=== PATIENT | female | born 1950 | race Two or more races ===

== ENCOUNTER 2020-08-21 23:14 | Inpatient (IN) | payer OTHER ==
[~2020-08-21] VITALS: Ht 154.9 cm; Wt 79.5 kg
[~2020-08-21 23:14] MED LIST: GLIM4TAB42 PO; LOSA-69 PO; METF-372 PO; NEBI5TAB2 PO; ROSU40TA PO
[2020-08-22 00:10] LABS: Basophils # (auto) 0.1 10 ^3/uL (0-0.2); Basophils % (auto) 0.5 % (0.0-2.0); Eosinophils # (auto) 0.3 10 ^3/uL (0-0.8); Eosinophils % (auto) 2.6 % (0.0-7.0); Hematocrit 40.1 % (36.0-46.0); Hemoglobin 13.9 g/dL (12.2-16.2); Lymphocytes # (auto) 4.2 10 ^3/uL (0.4-5.4); Lymphocytes % (auto) 38.2 % (10.0-50.0); Mean Corpuscular Hemoglobin 29.4 pg (28.0-32.0); Mean Corpuscular Hgb Conc. 34.7 g/dL (32.0-36.0); Mean Corpuscular Volume 84.9 fL (80.0-100.0); Monocytes # (auto) 0.8 10 ^3/uL (0-1.3); Monocytes % (auto) 7.7 % (0.0-12.0); Neutrophils # (auto) 5.6 10 ^3/uL (1.6-8.6); Nucleated Red Blood Cells % 0.1 %; Red Blood Cells 4.73 10^6/uL (4.0-5.20); Red Cell Distribution Width 13.6 % (11.8-14.3); White Blood Cell 10.9 10^3/uL (4.4-10.8)
[2020-08-22 00:28] LABS: Albumin 3.8 g/dL (3.4-5.0); BUN/Creatinine Ratio 21.9; Calcium 9.5 mg/dL (8.5-10.1)
[2020-08-22 00:31] LABS: Bilirubin, Total 0.5 mg/dL (0.2-1.0); Total Protein 7.9 g/dL (6.4-8.2)
[2020-08-22 08:12] LABS: Urine Bacteria NONE SEEN /hpf (None Seen); Urine Blood Negative /uL (Negative); Urine Specific Gravity 1.022 (1.001-1.035); Urine WBC 23 /hpf (0 - 5)
[2020-08-22] MEDS ORDERED: SODIUM CHLORIDE 0.9% 1,000 ML IV ONE ×2 (09:00)
[2020-08-22] MEDS ORDERED: KETOROLAC TROMETH 30 MG/ML 1ML VIAL IV ONE (09:00)
[2020-08-22] MEDS ORDERED: cefTRIAXone 1GM/50ML D5W 50 ML IV ONE (09:00)
[2020-08-22] MEDS ORDERED: TAMSULOSIN HYDROCHLORIDE 0.4 MG CAP PO ONE (09:00)
[2020-08-22] MEDS ORDERED: MORPHINE SULFATE INJECTION 2 MG/ML SYRG IV PRN (09:45)
[2020-08-22] MEDS ORDERED: traMADol HCL 50 MG TAB PO PRN (09:45)
[2020-08-22] MEDS ORDERED: ONDANSETRON HCL 4 MG/2 ML VIAL IV PRN (09:45)
[2020-08-22] MEDS ORDERED: DEXTROSE (50%) 50ML SYRG IV PRN (09:45)
[2020-08-22] MEDS ORDERED: TEMAZEPAM 15 MG CAP PO PRN (09:45)
[2020-08-22] MEDS ORDERED: ACETAMINOPHEN 500 MG TAB PO PRN (09:45)
[2020-08-22] MEDS: SODIUM CHLORIDE 0.9% 1,000 ML IV SCH ×2 (10:33→19:45)
[2020-08-22] MEDS: FAMOTIDINE 20 MG TAB PO SCH (10:34)
[2020-08-22] MEDS: ENOXAPARIN SOD 40 MG/0.4 ML SYRINGE SC SCH (10:34)
[2020-08-22] MEDS: ACCU-CHEK COMFORT CURVE STRIP VI SCH ×3 (11:43→22:00)
[2020-08-22] MEDS: InsuLIN REG 1unit/0.01ml Soln (100units/ml) SC SCH ×3 (11:44→23:27)
[2020-08-22] MEDS ORDERED: LOSA-39 PO (14:46)
[2020-08-22] MEDS ORDERED: ATOR40TA52 PO (14:56)
[2020-08-22] MEDS ORDERED: FIN5T PO (14:56)
[2020-08-22] MEDS ORDERED: METO25TA93 PO (14:56)
[2020-08-22] MEDS ORDERED: ASPI-498 PO (14:57)
[2020-08-22] MEDS ORDERED: CHOL20007 PO (14:57)
[2020-08-22] MEDS ORDERED: BIOT5TAB3 PO (14:58)
[2020-08-22 17:00] VITALS: BP 146/76
[2020-08-22 22:00] VITALS: BP 161/78
[2020-08-23 05:00] VITALS: BP 147/88
[2020-08-23] MEDS: SODIUM CHLORIDE 0.9% 1,000 ML IV SCH (05:45)
[2020-08-23 06:11] LABS: Basophils # (auto) 0 10 ^3/uL (0-0.2); Basophils % (auto) 0.4 % (0.0-2.0); Eosinophils # (auto) 0.2 10 ^3/uL (0-0.8); Eosinophils % (auto) 2.6 % (0.0-7.0); Hematocrit 36.9 % (36.0-46.0); Hemoglobin 13.2 g/dL (12.2-16.2); Lymphocytes % (auto) 29.7 % (10.0-50.0); Mean Corpuscular Hemoglobin 29.6 pg (28.0-32.0); Mean Corpuscular Hgb Conc. 35.7 g/dL (32.0-36.0); Monocytes # (auto) 0.5 10 ^3/uL (0-1.3); Monocytes % (auto) 7.8 % (0.0-12.0); Neutrophils # (auto) 4.1 10 ^3/uL (1.6-8.6); Neutrophils % (auto) 59.5 % (37.0-80.0); Red Blood Cells 4.45 10^6/uL (4.0-5.20); Red Cell Distribution Width 13.6 % (11.8-14.3); White Blood Cell 6.8 10^3/uL (4.4-10.8)
[2020-08-23 06:28] LABS: Albumin 3.5 g/dL (3.4-5.0); BUN/Creatinine Ratio 21.3
[2020-08-23 06:31] LABS: Bilirubin, Total 0.7 mg/dL (0.2-1.0); Total Protein 7.9 g/dL (6.4-8.2)
[2020-08-23] MEDS: ACCU-CHEK COMFORT CURVE STRIP VI SCH ×2 (06:39→11:30)
[2020-08-23] MEDS: InsuLIN REG 1unit/0.01ml Soln (100units/ml) SC SCH ×2 (06:41→11:30)
[2020-08-23 09:00] VITALS: BP 136/67
[2020-08-23] MEDS ORDERED: cefTRIAXone 1GM/50ML D5W 50 ML IV SCH (09:00)
[2020-08-23] MEDS: FAMOTIDINE 20 MG TAB PO SCH (09:42)
[2020-08-23] MEDS: ENOXAPARIN SOD 40 MG/0.4 ML SYRINGE SC SCH (09:43)
== END 2020-08-23 14:45 | disposition home or self-care (01) | DRG 693 ==
LOC: ER 23:14 → OVERFLOW 08-22 09:41 → EAST 08-22 14:16
PROVIDERS: ADMIT Internal Medicine; ATTEND Internal Medicine
DX: N20.0 Calculus of kidney (principal); N17.0 Acute kidney failure with tubular necrosis; N12 Tubulo-interstitial nephritis, not specified as acute or chronic; Z20.822 Contact with and (suspected) exposure to COVID-19; E11.22 Type 2 diabetes mellitus with diabetic chronic kidney disease; E78.5 Hyperlipidemia, unspecified; I12.9 Hypertensive chronic kidney disease with stage 1 through stage 4 chronic kidney disease, or unspecified chronic kidney disease; K76.0 Fatty (change of) liver, not elsewhere classified; N18.9 Chronic kidney disease, unspecified; E11.65 Type 2 diabetes mellitus with hyperglycemia; K57.90 Diverticulosis of intestine, part unspecified, without perforation or abscess without bleeding; E66.9 Obesity, unspecified; E11.21 Type 2 diabetes mellitus with diabetic nephropathy; Z79.84 Long term (current) use of oral hypoglycemic drugs; Z83.3 Family history of diabetes mellitus; Z90.710 Acquired absence of both cervix and uterus; Z88.2 Allergy status to sulfonamides; Z68.20 Body mass index [BMI] 20.0-20.9, adult
CPT/HCPCS: 36415; 74176; 80053; 81001; 82962; 83036; 85025; 87086; 87426; 93005; 96361; 96365; 96375; G0378; J0696; J1815; J1885

== ENCOUNTER 2021-09-20 21:01 | Emergency (ER) | payer OTHER ==
[~2021-09-20 21:01] MED LIST changes: +ASPI-498 PO; +ATOR40TA52 PO; +BIOT5TAB3 PO; +CHOL20007 PO; +FIN5T PO; +LOSA-39 PO; -LOSA-69 PO; +METO25TA93 PO; -NEBI5TAB2 PO; -ROSU40TA PO
[2021-09-21] MEDS ORDERED: AMOX-277 PO (08:37)
[2021-09-21] MEDS ORDERED: PRED10TA PO (08:37)
[2021-09-21] MEDS ORDERED: cefTRIAXone SOD 1,000 MG VL IM ONE (08:45)
[2021-09-21] MEDS ORDERED: methylPREDNISolone SOD SUCC 125 MG/2 ML VL IM ONE (08:45)
[2021-09-21 08:49] VITALS: BP 160/83
== END 2021-09-21 09:15 | disposition home or self-care (01) ==
LOC: ER 21:01
DX: J06.9 Acute upper respiratory infection, unspecified (principal); Z20.822 Contact with and (suspected) exposure to COVID-19
CPT/HCPCS: 36415; 71046; 87426; 96372; 99284; J0696; J2930

== ENCOUNTER 2023-09-30 23:02 | Inpatient (IN) | payer OTHER, MEDICAID ==
[~2023-09-30] VITALS: Ht 154.9 cm; Wt 62.0 kg
[~2023-09-30 23:02] MED LIST changes: +AMOX875T4 PO; -LOSA-39 PO; +LOSA-535 PO; +PRED10TA PO
[2023-10-01] VITALS (9 sets, daily range): BP systolic 144–150; BP diastolic 56–82; PULSE 60–88; RESP 13–18; TEMP 97.7–98.2; O2SAT 97–98
[2023-10-01 01:46] LABS: Urine Bacteria FEW /hpf (None Seen); Urine Blood 1+ /uL (Negative); Urine Clarity Clear (Clear); Urine Color Light-Yellow (Yellow); Urine Protein, UAD TRACE (Negative); Urine Specific Gravity 1.025 (1.001-1.035); Urine Urobilinogen Normal (Negative); Urine WBC 4 /hpf (0 - 5)
[2023-10-01 02:35] LABS: Basophils # (auto) 0 10 ^3/uL (0-0.2); Basophils % (auto) 0.3 % (0.0-2.0); Eosinophils # (auto) 0.1 10 ^3/uL (0-0.8); Lymphocytes # (auto) 2.3 10 ^3/uL (0.4-5.4); Lymphocytes % (auto) 25.3 % (10.0-50.0); Mean Corpuscular Hgb Conc. 34.3 g/dL (32.0-36.0); Mean Corpuscular Volume 84.6 fL (80.0-100.0); Monocytes # (auto) 0.7 10 ^3/uL (0-1.3); Monocytes % (auto) 7.7 % (0.0-12.0); Neutrophils % (auto) 65.7 % (37.0-80.0); Nucleated Red Blood Cells % 0.1 %; Red Blood Cells 4.84 10^6/uL (4.0-5.20); Red Cell Distribution Width 14.1 % (11.8-14.3); White Blood Cell 9.1 10^3/uL (4.4-10.8)
[2023-10-01 02:45] LABS: Alkaline Phosphatase 94 U/L (46-116)
[2023-10-01 02:46] LABS: Alanine Aminotransferase 20 U/L (7-40); Albumin 4.6 g/dL (3.2-4.8); Anion Gap 13 (5-15); Aspartate Aminotransferase 19 U/L (13-40); BUN/Creatinine Ratio 22.1 (10.0-20.0); Bilirubin, Total 0.7 mg/dL (0.2-1.0); Blood Urea Nitrogen 27 mg/dL (9-23); Calcium 10.2 mg/dL (8.7-10.4); Carbon Dioxide 20 mmol/L (20-30); Chloride 104 mmol/L (98-107); Glucose 190 mg/dL (74-106); Potassium 4.4 mmol/L (3.5-5.1); Sodium 137 mmol/L (136-145); Total Protein 7.7 g/dL (5.7-8.2)
[2023-10-01] MEDS: ONDANSETRON HCL 4 MG/2 ML VIAL IV ONE (02:52)
[2023-10-01] MEDS: SODIUM CHLORIDE 0.9% 1,000 ML IV ONE ×2 (02:53→06:17)
[2023-10-01] MEDS: KETOROLAC TROMETH 30 MG/ML 1ML VIAL IV ONE (02:53)
[2023-10-01] MEDS ORDERED: DEXTROSE (50%) 50ML SYRG IV PRN (06:00)
[2023-10-01] MEDS: ACCU-CHEK COMFORT CURVE STRIP VI SCH (08:00)
[2023-10-01] MEDS: InsuLIN REG 1unit/0.01ml Soln (100units/ml) SC SCH (08:00)
[2023-10-01] MEDS: LOSARTAN POTASSIUM 50 MG TAB PO SCH (10:00)
[2023-10-01] MEDS: METOPROLOL SUCCINATE XL 50 MG TAB PO SCH (10:00)
[2023-10-01] MEDS ORDERED: FINASTERIDE 5 MG TAB PO SCH (10:00)
[2023-10-01] MEDS: CHOLECALCIFEROL (VITD3) 1,000UNIT=25mCg TAB PO SCH (10:00)
[2023-10-01] MEDS ORDERED: GLIP10TA9 PO (11:35)
[2023-10-01] MEDS ORDERED: AMLO1TAB21 PO (11:35)
[2023-10-01] MEDS ORDERED: METO-289 PO (11:35)
[2023-10-01] MEDS ORDERED: CETI-120 PO (11:47)
[2023-10-01] MEDS ORDERED: SITA50TA PO (11:47)
[2023-10-01] MEDS ORDERED: KETO2SHA5 TOP (11:47)
[2023-10-01] MEDS ORDERED: METH4TAB9 PO (11:47)
[2023-10-01] MEDS ORDERED: SITA100T7 PO (11:47)
[2023-10-01] MEDS ORDERED: LOPE-62 PO (11:47)
[2023-10-01] MEDS: HYDROcodone-ACET 5/325MG TAB PO PRN (20:35)
[2023-10-01] MEDS: ATORVASTATIN 20 MG TAB PO SCH (20:35)
[2023-10-02 01:00] VITALS: BP 139/66; PULSE 64; RESP 17; TEMP 98.1; O2SAT 100
[2023-10-02 05:00] VITALS: BP 131/55; PULSE 58; RESP 18; TEMP 98; O2SAT 98
[2023-10-02] MEDS: MORPHINE SULFATE INJ 2 MG/ml SYRG IV PRN (06:19)
[2023-10-02 08:00] VITALS: PULSE 59; RESP 18; O2SAT 99
[2023-10-02 08:33] VITALS: BP 145/58; PULSE 66; RESP 18; TEMP 97.4; O2SAT 99
[2023-10-02] MEDS: cefTRIAXone 1GM/50ML D5W 50 ML IV ONE (11:45)
[2023-10-02] MEDS ORDERED: CIPR-173 PO (11:52)
[2023-10-02 12:44] VITALS: BP 134/61; PULSE 61; RESP 18; TEMP 97.7; O2SAT 96
[2023-10-02 13:02] VITALS: BP 134/61; PULSE 61; RESP 18; TEMP 97.7; O2SAT 96
[2023-10-03] MEDS ORDERED: cefTRIAXone 1GM/50ML D5W 50 ML IV SCH (09:00)
== END 2023-10-02 15:00 | disposition home or self-care (01) | DRG 693 ==
LOC: ER 23:02 → OVERFLOW 10-01 09:02 → WEST WING 10-01 09:52
PROVIDERS: ADMIT Family Medicine; ATTEND Family Medicine
DX: N20.0 Calculus of kidney (principal); N17.0 Acute kidney failure with tubular necrosis; N39.0 Urinary tract infection, site not specified; I10 Essential (primary) hypertension; E11.65 Type 2 diabetes mellitus with hyperglycemia; E78.00 Pure hypercholesterolemia, unspecified; Z87.442 Personal history of urinary calculi; Z88.2 Allergy status to sulfonamides; Z79.899 Other long term (current) drug therapy; Z79.82 Long term (current) use of aspirin; Z79.84 Long term (current) use of oral hypoglycemic drugs; Z85.038 Personal history of other malignant neoplasm of large intestine; Z90.710 Acquired absence of both cervix and uterus
CPT/HCPCS: 36415; 74176; 80053; 81001; 82962; 85025; 96361; 96374; 96375; G0378; J1815; J1885; J2405

== ENCOUNTER 2024-06-08 12:03 | Inpatient (IN) | payer OTHER, MEDICAID ==
[~2024-06-08] VITALS: Ht 154.9 cm; Wt 66.5 kg
[~2024-06-08 12:03] MED LIST changes: +AMLO1TAB21 PO; -AMOX875T4 PO; -ASPI-498 PO; +CETI-120 PO; +CIPR-173 PO; -GLIM4TAB42 PO; +GLIP10TA9 PO; +KETO2SHA5 TOP; +LOPE-62 PO; +METH4TAB9 PO; +METO-289 PO; -METO25TA93 PO; +SITA100T7 PO
--- NOTE | 2024-06-08 12:43 | ED.PDOC ---
General HPI Comments 73 y/o F, with PMHX of urolithiasis, HTN, DM, and HLD presents to the ED for CC of right flank pain. Patient states, that she has been experiencing right flank pain that radiates to her RUQ x4days. Patient relays, associated symptoms of nausea. Patient comments on, having received x7 lithotripsies in the past. Patient denies vomiting, diarrhea, hematuria, dysuria, or back pain. No other symptoms or modifying factors at this time. Time Seen by MD: 12:30 Primary Care Provider: STAN Reviewed notes: Nurses Notes, Medications, Allergies Allergies: Coded Allergies: Sulfa Antibiotics (Verified Allergy, Mild, 10/09/13) Home Meds Active Scripts Ciprofloxacin Hcl (Cipro) 500 Mg Tab, 1 TAB PO BID, #14 TAB Prov:JAIDA ROSALES MD 10/02/23 Prednisone (Prednisone) 10 Mg Tab, 10 MG PO BID for 5 Days, #10 MG 0 Refills Prov:MAISHA KING 09/21/21 Reported Medications Loperamide HCl (Loperamide Hydrochloride) 2 Mg Cap, CAP PO 10/01/23 Cetirizine HCl (Cetirizine Hydrochloride) 10 Mg Tab, 1 TAB PO DAILY 10/01/23 Sitagliptin Phosphate (Januvia) 100 Mg Tab, 1 TAB PO DAILY 10/01/23 Ketoconazole (Ketoconazole) 2 % Sha, TOP 10/01/23 Methylprednisolone (Methylprednisolone) 4 Mg Tab, 1 TAB PO DAILY 10/01/23 Metoprolol Succinate (Metoprolol Succinate Er) 50 Mg Tab, 1 TAB PO DAILY 10/01/23 Amlodipine Besylate (Amlodipine Besylate) 2.5 Mg Tab, 1 TAB PO DAILY, #30 TAB 5 Refills 10/01/23 Glipizide (Glipizide) 10 Mg Tab, 1 TAB PO BID, #60 TAB 5 Refills 10/01/23 Biotin (Vitamin H) (BIOTIN) Unknown Strength Tab, PO DAILY 08/22/20 Cholecalciferol (VITAMIN D3) 2,000 Unit Tab, 1 TAB PO DAILY 08/22/20 Atorvastatin Calcium (ATORVASTATIN CALCIUM) 40 Mg Tab, 1 TAB PO HS 08/22/20 Finasteride (Finasteride) 5 Mg Tab, 0.5 TAB PO DAILY for ALOPECIA FOR ALOPECIA 08/22/20 Losartan Potassium (Losartan Potassium) 100 Mg Tab, 1 TAB PO DAILY 08/22/20 Metformin Hydrochloride (Metformin Hcl) 1,000 Mg Tab, 1000 MG PO BID PER PT, PT TAKES 1000 MG PO AT BREAKFAST, 1000 MG PO AT LUNCH, & 500 MG PO AT DINNER 10/10/13 Information Source: Patient Mode of Arrival: Ambulatory Severity: Moderate Timing: Days Duration: Since onset Prehospital treatment: None Onset: Spontaneous Symptoms: None History of: Kidney stone Location: (R) Flank Modifying factors: None associated signs and symptoms: Abdominal Pain, Nausea Past Medical History PAST MEDICAL HISTORY: DM, High Lipids, HTN, Kidney Stones Surgical History: Hysterectomy MEAL ROOM HAND History: No Pertinent MEAL ROOM HAND History Family History Family History: Reviewed,noncontributory to illness Social History Smoker: Non-Smoker Alcohol: Denies ETOH Use Drugs: Denies Drug Use Lives In: Home Constitutional: denies: chills, diaphoresis, fatigue, fever, malaise, sweats, weakness, others EENTM: denies: blurred vision, double vision, ear bleeding, ear discharge, ear drainage, ear pain, ear ringing, eye pain, eye redness, hearing loss, mouth pain, mouth swelling, nasal discharge, nose bleeding, nose congestion, nose pain, photophobia, tearing, throat pain, throat swelling, voice changes, others Respiratory: denies: cough, hemoptysis, orthopnea, SOB at rest, shortness of breath, SOB with excertion, stridor, wheezing, others Cardiovascular: denies: chest pain, dizzy spells, diaphoresis, Dyspnea on exertion, edema, irregular heart beat, left arm pain, lightheadedness, palpitations, PND, syncope, others Gastrointestinal: reports: nausea; denies: abdomen distended, abdominal pain, b lood streaked bowels, constipated, diarrhea, dysphagia, difficulty swallowing, hematemesis, melena, poor appetite, poor fluid intake, rectal bleeding, rectal pain, vomiting, others Genitourinary: reports: flank pain; denies: abnormal vagina bleeding, burning, dyspareunia, dysuria, frequency, hematuria, incontinence, pain, , vagina discharge, urgency, others Neurological: denies: dizziness, fainting, headache, left sided numbness, left sided weakness, numbness, paresthesia, pre-existing deficit, right sided numbness, right sided weakness, seizure, speech problems, tingling, tremors, weakness, others Musculoskeletal: denies: back pain, gout, joint pain, joint swelling, muscle pain, muscle stiffness, neck pain, others Integumetry: denies: bruises, change in color, change in hair/nails, dryness, laceration, lesions, lumps, rash, wounds, others Allergic/Immunocompromised: denies: Difficulty Healing, Frequent Infections, Hives, Itching, others Hematologic/Lymphatic: denies: anemia, blood clots, easy bleeding, easy bruising, swollen glands, others Endocrine: denies: excessive hunger, excessive sweating, excessive thirst, excessive urination, flushing, intolerance to cold, intolerance to heat, unexplained weight gain, unexplained weight loss, others Psychiatric: denies: anxiety, bipolar disorder, depression, hopeless, panic disorder, schizophrenia, sleepless, suicidal, others All Other Systems: Reviewed and Negative Physical Exam General Appearance: Moderate Distress HEENT: Normal ENT Inspection, Pharynx Normal, TMs Normal Neck: Full Range of Motion, Non-Tender, Normal, Normal Inspection Respiratory: Chest Non-Tender, Lungs Clear, No Accessory Muscle Use, No Respiratory Distress, Normal Breath Sounds Cardiovascular: No Edema, No JVD, No Murmur, No Gallop, Normal Peripheral Pulses, Regular Rate/Rhythm Breast Exam: Deferred Gastrointestinal: No Organomegaly, Non Tender, No Pulsatile Mass, Normal Bowel Sounds, Soft Genitalia: Deferred Pelvic: Deferred Rectal: Deferred Extremities: No calf tenderness, Normal capillary refill, Normal inspection, Normal range of motion, Non-tender, No pedal edema Musculoskeletal : Location: Right Extremity Location: Back Apperance: Tenderness: Moderate Neurologic: Alert, washroom attendant II-XII nml as Tested, No Motor Deficits, Normal Affect, Normal Mood, No Sensory Deficits Cerebellar Function: Normal Reflexes: Normal Skin: Dry, Normal Color, Warm Lymphatic: No Adenopathy Was a procedure done? Was a procedure done?: No Differential Diagnosis Kidney stone (Female): Cholelithiasis Urinary Problem (Female): Pyelonephritis, Urinary retention, Urolithiasis, UTI, Vaginitis X-Ray, Labs, Meds, VS Vital Signs Date Time Temp Pulse Resp B/P (MAP) Pulse Ox O2 Delivery O2 Flow Rate FiO2 4/3/25 19:00 67 18 96 Room Air 06/08/24 18:11 98.2 67 18 122/67 (85) 96 98.2 06/08/24 15:01 98.1 59 16 118/56 (76) 97 98.1 06/08/24 15:00 60 18 135/68 06/08/24 13:34 67 18 145/71 06/08/24 13:12 67 18 96 Room Air* 0 21 06/08/24 13:12 97.7 67 18 145/71 (95) 96 97.7 06/08/24 12:20 97.8 76 18 134/72 (92) 97 97.8 Lab Test 06/08/24 13:07 Range/Units White Blood Count 11.4 H 4.4-10.8 10^3/uL Red Blood Count 4.63 4.0-5.20 10^6/uL Hemoglobin 13.2 12.2-16.2 g/dL Hematocrit 39.8 36.0-46.0 % Mean Corpuscular Volume 86.0 80.0-100.0 fL Mean Corpuscular Hemoglobin 28.5 28.0-32.0 pg Mean Corpuscular Hemoglobin Concent 33.2 32.0-36.0 g/dL Red Cell Distribution Width 14.4 H 11.8-14.3 % Platelet Count 284 140-450 10^3/uL Mean Platelet Volume 8.3 6.9-10.8 fL Neutrophils (%) (Auto) 67.4 37.0-80.0 % Lymphocytes (%) (Auto) 23.2 10.0-50.0 % Monocytes (%) (Auto) 8.0 0.0-12.0 % Eosinophils (%) (Auto) 1.0 0.0-7.0 % Basophils (%) (Auto) 0.4 0.0-2.0 % Neutrophils # (Auto) 7.7 1.6-8.6 10 ^3/uL Lymphocytes # (Auto) 2.6 0.4-5.4 10 ^3/uL Monocytes # (Auto) 0.9 0-1.3 10 ^3/uL Eosinophils # (Auto) 0.1 0-0.8 10 ^3/uL Basophils # (Auto) 0 0-0.2 10 ^3/uL Nucleated Red Blood Cells 0.1 % Sodium Level 137 136-145 mmol/L Potassium Level 4.7 3.5-5.1 mmol/L Chloride Level 103 98-107 mmol/L Carbon Dioxide Level 24 20-31 mmol/L Anion Gap 10 5-15 Blood Urea Nitrogen 21 9-23 mg/dL Creatinine 1.08 H 0.550-1.02 mg/dL Glomerular Filtration Rate Calc 54 >90 mL/min BUN/Creatinine Ratio 19.4 10.0-20.0 Serum Glucose 152 H 74-106 mg/dL Calcium Level 10.9 H 8.7-10.4 mg/dL Current Medications Medications (Trade) Dose Ordered Sig/Adis Route Start Time Stop Time Status Last Admin Ondansetron HCl (Zofran) 4 mg ONCE ONCE IV 06/08/24 12:45 06/08/24 12:46 DC 06/08/24 13:33 Sodium Chloride 1,000 ml @ 1,000 mls/hr Q1H ONCE IVB 06/08/24 12:45 06/08/24 13:44 DC 06/08/24 13:29 Morphine Sulfate 4 mg ONCE ONCE IV 06/08/24 12:45 06/08/24 12:46 DC 06/08/24 13:34 Ketorolac Tromethamine (Toradol Injection) 15 mg ONCE ONCE IV 06/08/24 12:45 06/08/24 12:46 DC 06/08/24 13:35 CT ABD PEL: IMPRESSION: No evidence of acute abdominopelvic abnormalities. Multiple nonobstructing bilateral renal calculi ; slightly more when compared from prior imaging. No hydronephrosis. Mild wall thickening of proximal small bowel loops which may be due to naren dequate distention with mild enteritis not completely excluded. Moderate amount of fecal material within the colon. IV Hep-Lock was established The patient was given a 1 L bolus of normal saline The patient was given ketorolac 15 mg IV push The patient was given morphine 4 mg IV push for the pain The patient was given Zofran 4 mg IV push for the nausea The CBC shows an elevated white blood cell count of 11.4 The rest of the CBC is within normal limits The chemistry panel is within normal limits At this time, the patient was being admitted to the hospitalist. Images Reviewed?: Images reviewed and evaluated by me Time of 1ST Reevaluation: 13:00 Reevaluation 1ST: Unchanged Patient Education/Counseling: Diagnosis, Treatment Family Education/Counseling: No Family Present Departure 1 Departure Time of Disposition: 19:10 Impression: Primary Impression: Fecal impaction Additional Impressions: Abdominal pain Qualified Codes: R10.11 - Right upper quadrant pain Kidney stone on right side Disposition: ADMITTED INPATIENT Admit to: Med Surg Condition: Fair Critical Care Note Critical Care Time?: No Stability Stability form required: Yes Unstable for transfer: ED Physician Assesment (Clinical assesment) Heart Score Heart Score: Heart Score Response (Comments) Value History N/A 0 EKG N/A 0 Age N/A 0 Risk Factors N/A 0 Troponin N/A 0 Total 0 I personally scribed for NADEEM CAMPBELL MD ([email or web address]) on 06/08/24 at 12:43. Electronically submitted by Kimberley Hastings ([email or web address]). I personally scribed for NADEEM CAMPBELL MD ([email or web address]) on 06/08/24 at 13:43. Electronically submitted by Kimberley Hastings ([email or web address]). NADEEM CAMPBELL MD Jun 08, 2024 12:43
[2024-06-08 13:12] VITALS: PULSE 67; RESP 18; O2SAT 96
[2024-06-08 13:16] LABS: Basophils # (auto) 0 10 ^3/uL (0-0.2); Basophils % (auto) 0.4 % (0.0-2.0); Eosinophils # (auto) 0.1 10 ^3/uL (0-0.8); Hematocrit 39.8 % (36.0-46.0); Hemoglobin 13.2 g/dL (12.2-16.2); Lymphocytes # (auto) 2.6 10 ^3/uL (0.4-5.4); Lymphocytes % (auto) 23.2 % (10.0-50.0); Mean Corpuscular Hemoglobin 28.5 pg (28.0-32.0); Mean Corpuscular Hgb Conc. 33.2 g/dL (32.0-36.0); Monocytes # (auto) 0.9 10 ^3/uL (0-1.3); Neutrophils # (auto) 7.7 10 ^3/uL (1.6-8.6); Neutrophils % (auto) 67.4 % (37.0-80.0); Nucleated Red Blood Cells % 0.1 %; Platelet Count (auto) 284 10^3/uL (140-450); Red Blood Cells 4.63 10^6/uL (4.0-5.20); Red Cell Distribution Width 14.4 % (11.8-14.3); White Blood Cell 11.4 10^3/uL (4.4-10.8)
--- NOTE | 2024-06-08 13:19 | DVH ---
Exam: CT CT AB PEL WO CON-NO ORAL OR IV History: left flank Comparison Study: 10/01/2023 TECHNIQUE: Multidetector CT of the abdomen and pelvis without IV contrast. Axial, coronal and sagitta l multiplanar reformats were obtained from the axial data set by the technologist. Radiation Dose Information: CT Dose: CTDI volume is 7.8 mGy. Dose-length product is 418.8 mGy*cm FINDINGS: The lung bases are clear. Partially visualized heart is unremarkable. Mild hepatomegaly. Otherwise, liver, spleen, gallbladder, pancreas and adrenal glands are unremarkab le. Right renal staghorn calculi largest measuring up to 12 mm within the renal pelvis with punctate nono bstructing left renal calculi. No hydronephrosis. Ureters and urinary bladder unremarkable. Uterus is not well-visualized. Question hysterectomy. Stomach is unremarkable. Mild wall thickening Proximal small bowel loops. The remainder of the small bowel loops unremarkable. Appendix is unremarkable. Moderate to large amount of fecal material withi n the colon. No evidence of intraperitoneal free air or free fluid. No evidence of aortic aneurysm. [id number] atherosclerotic calcification of the aorta and bilat eral iliacs. No significant lymphadenopathy. The soft tissues are unremarkable. No destructive osseous lesions noted. IMPRESSION: No evidence of acute abdominopelvic abnormalities. Multiple nonobstructing bilateral renal calculi ; slightly more when compared from prior imaging. No hydronephrosis. Mild wall thickening of proximal small bowel loops which may be due to inadequate distention with mil d enteritis not completely excluded. Moderate amount of fecal material within the colon.
[2024-06-08 13:27] LABS: Chloride 103 mmol/L (98-107); Potassium 4.7 mmol/L (3.5-5.1); Sodium 137 mmol/L (136-145)
[2024-06-08 13:28] LABS: Anion Gap 10 (5-15); Carbon Dioxide 24 mmol/L (20-31)
[2024-06-08] MEDS: SODIUM CHLORIDE 0.9% 1,000 ML IVB ONE (13:29)
[2024-06-08 13:33] LABS: BUN/Creatinine Ratio 19.4 (10.0-20.0); Blood Urea Nitrogen 21 mg/dL (9-23); Glucose 152 mg/dL (74-106)
[2024-06-08] MEDS: ONDANSETRON HCL 4 MG/2 ML VIAL IV ONE ×2 (13:33→23:07)
[2024-06-08] MEDS: MORPHINE SULFATE 4 MG/ML SYR/VIAL IV ONE (13:34)
[2024-06-08] MEDS: KETOROLAC TROMETH 30 MG/ML 1ML VIAL IV ONE (13:35)
[2024-06-08 13:40] LABS: Calcium 10.9 mg/dL (8.7-10.4)
[2024-06-08] MEDS ORDERED: ONDANSETRON HCL 4 MG/2 ML VIAL IV PRN (22:00)
--- NOTE | 2024-06-08 22:16 | DVHHPRES ---
History of Present Illness Resident Creating Document: PEARL CHAKRABORTY Reason for Visit: RIGHT FLANK PAIN History of Present Illness Patient is a 73-year-old female with a past medical history of recurrent nephrolithiasis, hypertension, diabetes, and hyperlipidemia presented to the ED with a chief complaint of right flank pain. According to the patient, she has been having flank pain for a long time associated with recurrent nephrolithiasis for many years and she has had about x7 lithotripsies in the past. However for this current episode, it started about 4 days ago localized to the right upper quadrant and associated with nausea but no vomiting. She denied any diarrhea, hematuria. dysuria or back pain or gallstones perhaps and she is not taking any thiazide containing medications. Given her history of recurrent nephrolithiasis, she decided to come to the ED to be evaluated. Lab work in the ED revealed l eukocytosis, CT abdomen revealed right renal staghorn calculi largest measuring up to 12 mm within the renal pelvis with punctate nonobstructing left renal calculi. No hydronephrosis. PMHX: HTN, DM, and HLD, recurrent nephrolithiasis Surgical History: Hysterectomy Family History: Noncontributory Social history patient lives at home does not drink does not smoke does not use any illicit drugs Past Medical History See HPI Review of Systems Review of Systems Constitutional: Denies fever no chills no feeling of malaise HEENT: Denies headache, ear pain, ear discharges, conjunctivitis, nasal discharge throat pain Cardiovascular: Denies chest pain, palpitation, orthopnea, PND, or pedal edema Respiratory: Denies shortness of breath, cough cough, sputum production, hemoptysis, GI: Denies abdominal pain, nausea, vomiting, diarrhea, hematemesis, hematochezia, : RIGHT FLANK PAIN; Denies frequency, urgency, hematuria, Endocrine: Denies unintentional weight gain or weight loss, feeling of hot flashes, Peng: Denies easy bruising, bleeding disorders, epistaxis Musculoskeletal: Denies joint pains, muscle aches Psych: No evidence of depression, [place], suicidal ideation Allergies: Coded Allergies: Sulfa Antibiotics (Verified Allergy, Mild, 10/09/13) Exam Vital Signs Vital Signs Date Time Temp Pulse Resp B/P (MAP) Pulse Ox O2 Delivery O2 Flow Rate FiO2 06/08/24 19:46 98.2 58 18 110/64 (79) 93 98.2 06/08/24 19:00 Room Air 06/08/24 13:12 0 21 Exam General Appearance: Alert, Oriented X3, Cooperative, No acute distress HEENT: Atraumatic, PERRLA, EOMI, Mucous membrane moist/pink Respiratory: Clear to auscultation, Normal air movement Cardiovascular: Regular rate, Normal S1, Normal S2, No murmurs, no chest wall tenderness Abdominal: CVA positive right, tenderness, bowel sounds present, no scars noted Extremities: No clubbing, No cyanosis, No edema, Normal pulses, No tenderness/swelling Skin: No rashes, No breakdown, No significant lesion Neuro: Normal gait, Normal speech, Strength at 5/5 X4 ext, Normal tone, Sensation intact, Cranial nerves 3-12 NL, Reflexes 2+ Psych/Mental Status: Mental status NL, Mood NL Labs/Xrays Labs Test 06/08/24 13:07 Range/Units White Blood Count 11.4 H 4.4-10.8 10^3/uL Red Blood Count 4.63 4.0-5.20 10^6/uL Hemoglobin 13.2 12.2-16.2 g/dL Hematocrit 39.8 36.0-46.0 % Mean Corpuscular Volume 86.0 80.0-100.0 fL Mean Corpuscular Hemoglobin 28.5 28.0-32.0 pg Mean Corpuscular Hemoglobin Concent 33.2 32.0-36.0 g/dL Red Cell Distribution Width 14.4 H 11.8-14.3 % Platelet Count 284 140-450 10^3/uL Mean Platelet Volume 8.3 6.9-10.8 fL Neutrophils (%) (Auto) 67.4 37.0-80.0 % Lymphocytes (%) (Auto) 23.2 10.0-50.0 % Monocytes (%) (Auto) 8.0 0.0-12.0 % Eosinophils (%) (Auto) 1.0 0.0-7.0 % Basophils (%) (Auto) 0.4 0.0-2.0 % Neutrophils # (Auto) 7.7 1.6-8.6 10 ^3/uL Lymphocytes # (Auto) 2.6 0.4-5.4 10 ^3/uL Monocytes # (Auto) 0.9 0-1.3 10 ^3/uL Eosinophils # (Auto) 0.1 0-0.8 10 ^3/uL Basophils # (Auto) 0 0-0.2 10 ^3/uL Nucleated Red Blood Cells 0.1 % Sodium Level 137 136-145 mmol/L Potassium Level 4.7 3.5-5.1 mmol/L Chloride Level 103 98-107 mmol/L Carbon Dioxide Level 24 20-31 mmol/L Anion Gap 10 5-15 Blood Urea Nitrogen 21 9-23 mg/dL Creatinine 1.08 H 0.550-1.02 mg/dL Glomerular Filtration Rate Calc 54 >90 mL/min BUN/Creatinine Ratio 19.4 10.0-20.0 Serum Glucose 152 H 74-106 mg/dL Calcium Level 10.9 H 8.7-10.4 mg/dL Assessment/Plan Assessment/Plan Assessment Right-sided Staghorn nephrolithiasis ( 12mm) Multiple nonobstructing bilateral renal calculi, No hydronephrosis. Fecal impaction Mild wall thickening of proximal small bowel loops which may be due to inadequate distention with mild enteritis Mild hypercalcemia with elevated PTH Diabetes mellitus, A 1C 6.8 Plan: Adequate hydration Tamsulosin Pain management Urology consult Docusate for constipation Antibiotics for possible enteritis Check vitamin D Goal of care discussed for more than 25 minute: Full code Case and plan discussed with Dr. Owusu Plan discussed with: Patient My Orders Orders - PEARL CHAKRABORTY RESIDENT Procedure Category Date Status Time Admit ADMIT 06/08/24 Transmitted 20:42 Code Status CODE 06/08/24 Transmitted 20:42 Vital Signs GABRIELE 06/08/24 In Process 20:42 Review Orders With GABRIELE 06/08/24 In Process Adm.Md 20:42 Notify Md Of Changes GABRIELE 06/08/24 In Process From Base 20:42 Advance Directive GABRIELE 06/08/24 In Process 20:42 Patient Condition ORDERS 06/08/24 Transmitted 20:42 Allergies GABRIELE 06/08/24 In Process 20:42 Notify Md Of Changes GABRIELE 06/08/24 In Process From Base 20:42 (Nf) Amlodipine PHA 06/09/24 Verified Besylate 10:00 (Nf) Atorvastatin PHA 06/08/24 Verified Calcium 22:00 Tamsulosin PHA 06/08/24 Verified Hydrochloride (Flomax) 22:00 Ondansetron Hcl PHA 06/08/24 Verified (Zofran) 22:00 Ondansetron Hcl PHA 06/08/24 Verified (Zofran) 22:00 Ketorolac Injection PHA 06/08/24 Verified (Toradol Injection) 22:00 Pantoprazole PHA 06/09/24 Verified (Protonix) 10:00 NS PHA 06/08/24 Verified 22:00 Hemoglobin A1c LAB 06/08/24 Verified 21:58 Parathyroid Hormone LAB 06/08/24 Verified Intact 21:58 Thyroid Stimulating LAB 06/08/24 Verified Hormone 21:58 Ceftriaxone Ivpb PHA 06/09/24 Verified Rocephin 09:00 Ceftriaxone Ivpb PHA 06/08/24 Verified Rocephin 22:00 Date of Service: Jun 08, 2024 Billing Provider: LIONEL OWUSU MD Common Visit Codes: 85357-[id number] INP/OBS CARE (HIGH) Secondary Visit Codes: [id number] CARE PLAN 30 MINUTES PEARL CHAKRABORTY RESIDENT Jun 08, 2024 22:16 LIONEL OWUSU MD Jun 13, 2024 12:22
[2024-06-08] MEDS: cefTRIAXone 1GM/50ML D5W 50 ML IV ONE (23:07)
[2024-06-08] MEDS: TAMSULOSIN HYDROCHLORIDE 0.4 MG CAP PO ONE (23:09)
[2024-06-09] VITALS (7 sets, daily range): BP systolic 110–147; BP diastolic 48–77; PULSE 62–72; RESP 17–20; TEMP 97.6–98.5; O2SAT 95–98
[2024-06-09] MEDS: SODIUM CHLORIDE 0.9% 1,000 ML IV SCH
[2024-06-09] MEDS: KETOROLAC TROMETH 30 MG/ML 1ML VIAL IV PRN (03:36)
[2024-06-09 06:43] LABS: Anion Gap 10 (5-15); Potassium 4.2 mmol/L (3.5-5.1); Sodium 137 mmol/L (136-145)
[2024-06-09 06:44] LABS: Carbon Dioxide 19 mmol/L (20-31); Chloride 108 mmol/L (98-107)
[2024-06-09 06:45] LABS: Calcium 9.7 mg/dL (8.7-10.4)
[2024-06-09 06:48] LABS: Basophils # (auto) 0 10 ^3/uL (0-0.2); Basophils % (auto) 0.3 % (0.0-2.0); Eosinophils # (auto) 0.2 10 ^3/uL (0-0.8); Eosinophils % (auto) 2.3 % (0.0-7.0); Hematocrit 33.6 % (36.0-46.0); Hemoglobin 11.7 g/dL (12.2-16.2); Lymphocytes # (auto) 2.8 10 ^3/uL (0.4-5.4); Lymphocytes % (auto) 27.1 % (10.0-50.0); Mean Corpuscular Hemoglobin 30.1 pg (28.0-32.0); Mean Corpuscular Volume 86.2 fL (80.0-100.0); Monocytes # (auto) 0.8 10 ^3/uL (0-1.3); Monocytes % (auto) 8.1 % (0.0-12.0); Neutrophils # (auto) 6.4 10 ^3/uL (1.6-8.6); Neutrophils % (auto) 62.2 % (37.0-80.0); Platelet Count (auto) 230 10^3/uL (140-450); Red Cell Distribution Width 14.3 % (11.8-14.3); White Blood Cell 10.4 10^3/uL (4.4-10.8)
[2024-06-09 06:50] LABS: BUN/Creatinine Ratio 21.1 (10.0-20.0); Blood Urea Nitrogen 23 mg/dL (9-23)
[2024-06-09 06:51] LABS: Glucose 136 mg/dL (74-106)
[2024-06-09 07:12] LABS: Urine Bacteria FEW /hpf (None Seen); Urine Blood 2+ /uL (Negative); Urine Clarity Clear (Clear); Urine Color Light-Yellow (Yellow); Urine Protein, UAD Negative (Negative); Urine Squamous Epithelial Cell FEW /hpf (<5); Urine Urobilinogen Normal (Negative); Urine WBC 3 /HPF (0-5)
[2024-06-09] MEDS ORDERED: DEXTROSE (50%) 50ML SYRG IV PRN (07:30)
[2024-06-09] MEDS: PANTOPRAZOLE 40 MG/10 ML VIAL INJ IV SCH (08:39)
[2024-06-09] MEDS: metroNIDAZOLE 500MG/100ML 100 ML IV ONE (08:39)
[2024-06-09] MEDS: MULTIPLE VITAMINS W/ MINERALS TAB PO SCH (08:40)
[2024-06-09] MEDS: amLODIPine BESYLATE 5 MG TAB PO SCH (08:40)
--- NOTE | 2024-06-09 09:08 | DVHINCON2 ---
Date of service: Jun 09, 2024 Referring Physician Shin Reason for Consultation recurrent nephrolithiasis History of Present Illness History Source: Patient, RN Notes, MD Notes Exam Limitations: No limitations HPI 73-year-old female with a past medical history of recurrent nephrolithiasis, hypertension, diabetes, and hyperlipidemia presented to the ED with a chief co mplaint of right flank pain. According to the patient, she has been having flank pain for a long time associated with recurrent nephrolithiasis for many years and she has had about x7 lithotripsies in the past. However for this current episode, it started about 4 days ago localized to the right upper quadrant and associated with nausea but no vomiting. She denied any diarrhea, hematuria. dysuria or back pain or gallstones perhaps and she is not taking any thiazide containing medications. Given her history of recurrent nephrolithiasis, she decided to come to the ED to be evaluated. Lab work in the ED revealed l eukocytosis, CT abdomen revealed right renal staghorn calculi largest measuring up to 12 mm within the renal pelvis with punctate nonobstructing left renal calculi. No hydronephrosis. Home Meds Active Scripts Ciprofloxacin Hcl (Cipro) 500 Mg Tab, 1 TAB PO BID, #14 TAB Prov:JAIDA ROSALES MD 10/02/23 Prednisone (Prednisone) 10 Mg Tab, 10 MG PO BID for 5 Days, #10 MG 0 Refills Prov:MAISHA KING 09/21/21 Reported Medications Loperamide HCl (Loperamide Hydrochloride) 2 Mg Cap, CAP PO 10/01/23 Cetirizine HCl (Cetirizine Hydrochloride) 10 Mg Tab, 1 TAB PO DAILY 10/01/23 Sitagliptin Phosphate (Januvia) 100 Mg Tab, 1 TAB PO DAILY 10/01/23 Ketoconazole (Ketoconazole) 2 % Sha, TOP 10/01/23 Methylprednisolone (Methylprednisolone) 4 Mg Tab, 1 TAB PO DAILY 10/01/23 Metoprolol Succinate (Metoprolol Succinate Er) 50 Mg Tab, 1 TAB PO DAILY 10/01/23 Amlodipine Besylate (Amlodipine Besylate) 2.5 Mg Tab, 1 TAB PO DAILY, #30 TAB 5 Refills 10/01/23 Glipizide (Glipizide) 10 Mg Tab, 1 TAB PO BID, #60 TAB 5 Refills 7/26/24 Biotin (Vitamin H) (BIOTIN) Unknown Strength Tab, PO DAILY 08/22/20 Cholecalciferol (VITAMIN D3) 2,000 Unit Tab, 1 TAB PO DAILY 08/22/20 Atorvastatin Calcium (ATORVASTATIN CALCIUM) 40 Mg Tab, 1 TAB PO HS 08/22/20 Finasteride (Finasteride) 5 Mg Tab, 0.5 TAB PO DAILY for ALOPECIA FOR ALOPECIA 08/22/20 Losartan Potassium (Losartan Potassium) 100 Mg Tab, 1 TAB PO DAILY 08/22/20 Metformin Hydrochloride (Metformin Hcl) 1,000 Mg Tab, 1000 MG PO BID PER PT, PT TAKES 1000 MG PO AT BREAKFAST, 1000 MG PO AT LUNCH, & 500 MG PO AT DINNER 10/10/13 Past Medical History Cardiac: CAD, HTN Endocrine: NIDDM Past Surgical History: Other (lithotripsy) Patient Family History: Colon cancer G8 MOTHER Review of Systems Constitutional: No symptom reported Ears, Nose, & Throat: No symptom reported Eyes: No symptom reported Pulmonary/Respiratory: No symptom reported Cardiovascular: No symptom reported Gastrointestinal: No symptom reported Genitourinary: No symptom reported Musculoskeletal: No symptom reported Skin: No symptom reported Psychiatric: No symptom reported Endocrine: No symptom reported Hemotologic/Lymphatic: No symptom reported H&P Exam Vital Signs Vital Signs Date Time Temp Pulse Resp B/P (MAP) Pulse Ox O2 Delivery O2 Flow Rate FiO2 06/09/24 08:54 147/51 06/09/24 08:15 Room Air* 0 21 06/09/24 05:00 97.6 64 17 97 97.6 General Appeara: Well developed, Well nourished, Normal Appearance Neuro/Mental St: Alert, Oriented Appearance: Appropriate appearance, Appropriate insight Eye contact/ Speech: Cooperative, Good eye contact, Normal speech Skin Exam: Normal inspection, Normal color, Warm/dry Labs/Xrays [address] [address] Ph: [phone] DIAGNOSTIC IMAGING Diagnostic Imaging Report : [id number] Signed PATIENT: ANDERSON PABONCCT: [id number] UNIT: [id number] : 1950 LOC: ER ROOM / BED: / AGE / SEX: 73 / F ADM STATUS: REG ER SERVICE [id number] ORDERING PHYSICIAN: NADEEM CAMPBELL MD PROCEDURE(s): ABPL - CT AB PEL WO CON-NO ORAL OR IV REASON: left flank ORDER NUMBER(s): [id number], ACCESSION NUMBER(s): [id number] Exam: CT CT AB PEL WO CON-NO ORAL OR IV History: left flank Comparison Study: 10/01/2023 TECHNIQUE: Multidetector CT of the abdomen and pelvis without IV contrast. Axial, coronal and sagittal multiplanar reformats were obtained from the axial data set by the technologist. Radiation Dose Information: CT Dose: CTDI volume is 7.8 mGy. Dose-length product is 418.8 mGy*cm FINDINGS: The lung bases are clear. Partially visualized heart is unremarkable. Mild hepatomegaly. Otherwise, liver, spleen, gallbladder, pancreas and adrenal glands are unremarkable. Right renal staghorn calculi largest measuring up to 12 mm within the renal pelvis with punctate nonobstructing left renal calculi. No hydronephrosis. Ureters and urinary bladder unremarkable. Uterus is not well-visualized. Question hysterectomy. Stomach is unremarkable. Mild wall thickening Proximal small bowel loops. The remainder of the small bowel loops unremarkable. Appendix is unremarkable. Moderate to large amount of fecal material within the colon. No evidence of intraperitoneal free air or free fluid. No evidence of aortic aneurysm. [id number] atherosclerotic calcification of the aorta and bilateral iliacs. No significant lymphadenopathy. The soft tissues are unremarkable. No destructive osseous lesions noted. IMPRESSION: No evidence of acute abdominopelvic abnormalities. Multiple nonobstructing bilateral renal calculi ; slightly more when compared from prior imaging. No hydronephrosis. Mild wall thickening of proximal small bowel loops which may be due to inadequate distention with mild enteritis not completely excluded. Moderate amount of fecal material within the colon. ATED BY: GIULIA MCKEE DO DICTATED DATE/TIME: 06/08/241316 SIGNED BY: GIULIA MCKEE DO SIGNED DATE/TIME: 06/08/241316 CC: Labs Test 06/09/24 06:45 06/09/24 05:43 06/08/24 13:07 Range/Units Urine Color Light-yellow Yellow Urine Clarity Clear Clear Urine pH 5.0 5.0-9.0 Urine Specific [place] 1.030 1.001-1.035 Urine Protein Negative Negative Urine Ketones Negative Negative Urine Blood 2+ H Negative /uL Urine Nitrite Negative Negative Urine Bilirubin Negative Negative Urine Urobilinogen Normal Negative mg/dL Urine Leukocyte Esterase Negative Negative /uL Urine RBC 153 0 - 4 /hpf Urine Microscopic WBC 3 0-5 /HPF Urine Squamous Epithelial Cells Few <5 /hpf Urine Bacteria Few H None Seen /hpf Urine Glucose 4+ H Normal mg/dL White Blood Count 10.4 4.4-10.8 10^3/uL Red Blood Count 3.90 L 4.0-5.20 10^6/uL Hemoglobin 11.7 L 12.2-16.2 g/dL Hematocrit 33.6 #L 36.0-46.0 % Mean Corpuscular Volume 86.2 80.0-100.0 fL Mean Corpuscular Hemoglobin 30.1 28.0-32.0 pg Mean Corpuscular Hemoglobin Concent 35.0 32.0-36.0 g/dL Red Cell Distribution Width 14.3 11.8-14.3 % Platelet Count 230 140-450 10^3/uL Mean Platelet Volume 8.6 6.9-10.8 fL Neutrophils (%) (Auto) 62.2 37.0-80.0 % Lymphocytes (%) (Auto) 27.1 10.0-50.0 % Monocytes (%) (Auto) 8.1 0.0-12.0 % Eosinophils (%) (Auto) 2.3 0.0-7.0 % Basophils (%) (Auto) 0.3 0.0-2.0 % Neutrophils # (Auto) 6.4 1.6-8.6 10 ^3/uL Lymphocytes # (Auto) 2.8 0.4-5.4 10 ^3/uL Monocytes # (Auto) 0.8 0-1.3 10 ^3/uL Eosinophils # (Auto) 0.2 0-0.8 10 ^3/uL Basophils # (Auto) 0 0-0.2 10 ^3/uL Nucleated Red Blood Cells 0.0 % Sodium Level 137 136-145 mmol/L Potassium Level 4.2 3.5-5.1 mmol/L Chloride Level 108 H 98-107 mmol/L Carbon Dioxide Level 19 L 20-31 mmol/L Anion Gap 10 5-15 Blood Urea Nitrogen 23 9-23 mg/dL Creatinine 1.09 H 0.550-1.02 mg/dL Glomerular Filtration Rate Calc 54 >90 mL/min BUN/Creatinine Ratio 21.1 H 10.0-20.0 Serum Glucose 136 H 74-106 mg/dL Calcium Level 9.7 8.7-10.4 mg/dL Hemoglobin A1c 6.8 H <5.7 % A1C Thyroid Stimulating Hormone (TSH) 1.74 0.55-4.78 uIU/mL Parathyroid Hormone (Intact) 94.5 H 18.4-80.1 pg/mL Assessment/Plan Problem List: (1) Abdominal pain (2) Kidney stone on right side (3) Renal colic Plan outpt lithotripsy TBA urology signing off Plan discussed with: Patient, Other PORFIRIO LOPEZ NP Jun 09, 2024 09:08
--- NOTE | 2024-06-09 09:39 | DVH ---
INDICATION: b/l ureter and bladder scan to rule out obstruction. TECHNIQUE: Multiple real-time sonographic images of the kidneys and bladder were obtained. COMPARISON: None FINDINGS: The right kidney measures 11 cm in length, which is normal in size. There is normal echogen icity of the right kidney. No hydronephrosis. 9 mm renal stone. The left kidney measures 11 cm in length, which is normal in size. There is normal echogenicity of th e left kidney. No hydronephrosis. 5mm left renal stone. No large intraluminal masses are seen in the bladder. IMPRESSION: Bilateral nonobstructing renal calculi.
[2024-06-09] MEDS: ACCU-CHEK COMFORT CURVE STRIP VI SCH (11:55)
[2024-06-09] MEDS: InsuLIN REG 1unit/0.01ml Soln (100units/ml) SC SCH (12:06)
[2024-06-09] MEDS: metroNIDAZOLE 500MG/100ML 100 ML IV SCH (13:59)
--- NOTE | 2024-06-09 16:03 | DVHPN2 ---
Subjective Continues to have sharp intermittent pain to her right and left upper quadrants. Reviewed: Care Plan, H&P, Labs, Medications, Previous Orders Changes from previous H/P or p: No Changes General: Per HPI Objective Vitals Vital Signs Date Time Temp Pulse Resp B/P (MAP) Pulse Ox O2 Delivery O2 Flow Rate FiO2 06/09/24 13:00 98.5 64 18 133/73 (93) 96 98.5 06/09/24 08:15 Room Air* 0 21 Intake/Output Intake and Output 06/09/24 07:00 Intake Total 1000 ml Balance 1000 ml Intake Oral 0 ml IV Total 1000 ml # Voids 1 General Appearance: Alert, Oriented X3, Cooperative, No acute distress HEENT: Atraumatic, PERRLA Cardiovascular: Normal S1, Normal S2 Abdomen: Normal bowel sounds, Soft, No tenderness, No hepatospenomegaly Musculoskeletal: Normal sensory function, Normal motor function Skin: Dry, Intact Psych/Mental Status: Mental status NL, Mood NL Medications Current Medications Medications Dose Ordered Sig/Adis Route Start Time Stop Time Status Last Admin Dose Admin Amlodipine Besylate 2.5 mg DAILY PO 06/09/24 10:00 06/09/24 08:54 2.5 MG Atorvastatin Calcium 40 mg HS PO 06/09/24 22:00 Ondansetron HCl 4 mg Q6HPRN PRN IV 06/08/24 22:00 Ketorolac Tromethamine 15 mg Q6HPRN PRN IV 06/08/24 22:00 06/13/24 21:59 06/09/24 03:36 15 MG Pantoprazole Sodium 40 mg DAILY IV 06/09/24 10:00 06/09/24 08:39 40 MG Sodium Chloride 1,000 ml @ 125 mls/hr Q8H IV 06/08/24 22:00 06/09/24 13:59 125 MLS/HR Ceftriaxone Sodium 50 ml @ 100 mls/hr DAILY@2100 IV 06/09/24 21:00 Tamsulosin HCl 0.4 mg QPM PO 06/09/24 18:00 Metronidazole 100 ml @ 100 mls/hr Q8HR IV 06/09/24 14:00 06/09/24 13:59 100 MLS/HR Multivitamins/ Minerals 1 tab DAILY PO 06/09/24 10:00 06/09/24 08:40 1 TAB Diagnostic Test (Pha) 1 strip Q6HR 06/09/24 12:00 06/09/24 11:55 1 STRIP Insulin Human Regular Q6HR SC 06/09/24 12:00 06/09/24 12:18 3 UNITS Dextrose 50 ml UD PRN IV 06/09/24 07:30 Laboratory Results Laboratory Tests 06/09/24 05:43 Chemistry Test 06/09/24 05:43 Calcium Level 9.7 mg/dL (8.7-10.4) Urinalysis Test 06/09/24 06:45 Urine Color Light-yellow (Yellow) Urine Clarity Clear (Clear) Urine pH 5.0 (5.0-9.0) Urine Specific [place] 1.030 (1.001-1.035) Urine Protein Negative (Negative) Urine Ketones Negative (Negative) Urine Blood 2+ /uL (Negative) H Urine Nitrite Negative (Negative) Urine Bilirubin Negative (Negative) Urine Urobilinogen Normal mg/dL (Negative) Urine Leukocyte Esterase Negative /uL (Negative) Urine RBC 153 /hpf (0 - 4) Urine Microscopic WBC 3 /HPF (0-5) Urine Squamous Epithelial Cells Few /hpf (<5) Urine Bacteria Few /hpf (None Seen) H Urine Glucose 4+ mg/dL (Normal) H Labs and/or images reviewed: Labs reviewed by me, Image(s) reviewed by me Assessment/Plan Assessment/Plan Impression: -abdominal pain, probable enteritis, constipation -bilateral nephrolithiasis, nonobstructive -diabetes mellitus -dyslipidemia -primary hypertension Plan: -start mechanical soft diet -regular insulin sliding scale -continue antibiotic therapy -stool softeners -urology consultation: Recommendations reviewed -continue IV hydration Total time spent with patient discussing and formulating plan of care: 35 minutes. This medical document was created using an electronic medical record system with [employer] dictation system. Although this document has been carefully reviewed, there may still be some phonetic and typographical errors. These areas are purely typographical due to imperfections of the software programs, and do not reflect any compromise in the patient's medical care. Plan discussed with: Patient, Other (RN) My Orders Orders - STARR WILLAMS LEAD ENGINEER Procedure Category Date Status Time Consistent DIET 06/09/24 Transmitted Carb(Ccho)Diabetes Lunch Date of Service: Jun 09, 2024 Billing Provider: STARR WILLAMS NP Common Visit Codes: [id number] INP/OBS CARE(HIGH) STARR WILLAMS NP Jun 09, 2024 16:03
[2024-06-09] MEDS: TAMSULOSIN HYDROCHLORIDE 0.4 MG CAP PO SCH (17:37)
[2024-06-09] MEDS: cefTRIAXone 1GM/50ML D5W 50 ML IV SCH (21:15)
[2024-06-09] MEDS: DOCUSATE SOD 100 MG CAP PO SCH (21:23)
[2024-06-09] MEDS: ATORVASTATIN 20 MG TAB PO SCH (21:23)
[2024-06-10 00:56] VITALS: BP 120/51; PULSE 63; RESP 20; TEMP 97.9; O2SAT 98
[2024-06-10 04:49] VITALS: BP 121/60; PULSE 65; RESP 20; TEMP 97.8; O2SAT 98
[2024-06-10 08:00] VITALS: PULSE 67; RESP 15; O2SAT 97
[2024-06-10 09:00] VITALS: BP 138/64; PULSE 67; RESP 15; TEMP 98.1; O2SAT 97
[2024-06-10 13:00] VITALS: BP 132/52; PULSE 58; RESP 15; TEMP 98.4; O2SAT 96
[2024-06-10] MEDS ORDERED: METR-344 PO (13:10)
--- NOTE | 2024-06-10 13:12 | DVHDS2 ---
Discharge Summary Date of Admission Jun 08, 2024 at 20:42 Date of Discharge: Jun 10, 2024 Admitting Diagnosis Staghorn nephrolithiasis Labs/Diagnostic Data: Laboratory Results Test 06/10/24 06:08 06/09/24 06:45 06/09/24 05:43 06/08/24 13:07 POC Glucose 141 mg/dl (70-106) Urine Color Light-yellow (Yellow) Urine Clarity Clear (Clear) Urine pH 5.0 (5.0-9.0) Urine Specific [place] 1.030 (1.001-1.035) Urine Protein Negative (Negative) Urine Ketones Negative (Negative) Urine Blood 2+ /uL (Negative) Urine Nitrite Negative (Negative) Urine Bilirubin Negative (Negative) Urine Urobilinogen Normal mg/dL (Negative) Urine Leukocyte Esterase Negative /uL (Negative) Urine RBC 153 /hpf (0 - 4) Urine Microscopic WBC 3 /HPF (0-5) Urine Squamous Epithelial Cells Few /hpf (<5) Urine Bacteria Few /hpf (None Seen) Urine Glucose 4+ mg/dL (Normal) White Blood Count 10.4 10^3/uL (4.4-10.8) Red Blood Count 3.90 10^6/uL (4.0-5.20) Hemoglobin 11.7 g/dL (12.2-16.2) Hematocrit 33.6 % (36.0-46.0) Mean Corpuscular Volume 86.2 fL (80.0-100.0) Mean Corpuscular Hemoglobin 30.1 pg (28.0-32.0) Mean Corpuscular Hemoglobin Concent 35.0 g/dL (32.0-36.0) Red Cell Distribution Width 14.3 % (11.8-14.3) Platelet Count 230 10^3/uL (140-450) Mean Platelet Volume 8.6 fL (6.9-10.8) Neutrophils (%) (Auto) 62.2 % (37.0-80.0) Lymphocytes (%) (Auto) 27.1 % (10.0-50.0) Monocytes (%) (Auto) 8.1 % (0.0-12.0) Eosinophils (%) (Auto) 2.3 % (0.0-7.0) Basophils (%) (Auto) 0.3 % (0.0-2.0) Neutrophils # (Auto) 6.4 10 ^3/uL (1.6-8.6) Lymphocytes # (Auto) 2.8 10 ^3/uL (0.4-5.4) Monocytes # (Auto) 0.8 10 ^3/uL (0-1.3) Eosinophils # (Auto) 0.2 10 ^3/uL (0-0.8) Basophils # (Auto) 0 10 ^3/uL (0-0.2) Nucleated Red Blood Cells 0.0 % Sodium Level 137 mmol/L (136-145) Potassium Level 4.2 mmol/L (3.5-5.1) Chloride Level 108 mmol/L (98-107) Carbon Dioxide Level 19 mmol/L (20-31) Anion Gap 10 (5-15) Blood Urea Nitrogen 23 mg/dL (9-23) Creatinine 1.09 mg/dL (0.550-1.02) Glomerular Filtration Rate Calc 54 mL/min (>90) BUN/Creatinine Ratio 21.1 (10.0-20.0) Serum Glucose 136 mg/dL (74-106) Calcium Level 9.7 mg/dL (8.7-10.4) Hemoglobin A1c 6.8 % A1C (<5.7) Thyroid Stimulating Hormone (TSH) 1.74 uIU/mL (0.55-4.78) Parathyroid Hormone (Intact) 94.5 pg/mL (18.4-80.1) Other Laboratory Tests 06/09/24 05:43 Brief Hx & Hospital Course: History of Present Illness Patient is a 73-year-old female with a past medical history of recurrent nephrolithiasis, hypertension, diabetes, and hyperlipidemia presented to the ED with a chief complaint of right flank pain. According to the patient, she has been having flank pain for a long time associated with recurrent nephrolithiasis for many years and she has had about x7 lithotripsies in the past. However for this current episode, it started about 4 days ago localized to the right upper quadrant and associated with nausea but no vomiting. She denied any diarrhea, hematuria. dysuria or back pain or gallstones perhaps and she is not taking any thiazide containing medications. Given her history of recurrent nephrolithiasis, she decided to come to the ED to be evaluated. Lab work in the ED revealed leukocytosis, CT abdomen revealed right renal staghorn calculi largest measuring up to 12 mm within the renal pelvis with punctate nonobstructing left renal calculi. No hydronephrosis. Course of hospitalization: Patient was started on bowel regimen, IV antibiotic therapy for questionable enteritis. Urology consultation was obtained. No intervention needed at this time. Patient was white blood cell count improved with IV hydration antibiotic therapy. Patient had evacuate her bowels with improvement with the patient's pain. Patient was instructed to follow up with her PCP in 1-2 weeks. She will continue all home medications and will be continued on antibiotic therapy with Flagyl 500 mg p.o. t.i.d. x5 days. Patient was agreeable with discharge plan. All questions answered. Physical examination General: Alert and Oriented x3. No acute distress. Well-nourished. Eyes: EOMI. Anicteric. HENT: Moist mucous membranes. Lungs: Clear to auscultation bilaterally. No accessory muscle use. Cardiovascular: Regular rate and rhythm. No murmur. No JVD. Abdomen: Soft, non-tender and non-distended. No palpable masses. Extremities: No edema. Non-tender. Skin: No rashes or lesions. Warm. Neurologic: No focal neurological deficits. CN II-XII grossly intact, but not individually tested. Psychiatric: Cooperative. Appropriate mood and affect. Total time spent with patient discussing and formulating plan of care: 35 minutes. This medical document was created using an electronic medical record system with [employer] dictation system. Although this document has been carefully reviewed, there may still be some phonetic and typographical errors. These areas are purely typographical due to imperfections of the software programs, and do not reflect any compromise in the patient's medical care. Consults/Reason for consult Urology: Staghorn renal calculi Condition at Discharge: Fair Final Diagnosis/Problems List Abdominal pain, enteritis Secondary diagnosis: dominal pain, probable enteritis, constipation -bilateral nephrolithiasis, nonobstructive -diabetes mellitus -dyslipidemia -primary hypertension Discharge Disposition: Home Discharge Instruct/Medications Diet: Cardiac 2g Na,low cholest Activity: No Restrictions, As Tolerated Follow Up/Referral: Follow up with PCP in 1-2 weeks Medications: Flagyl 500 mg p.o. t.i.d. x5 days Continue all home medications 36 Discharge Statement: "Patient was advised to return to the ER or call 911 if any headaches, dizziness, shortness of breath, chest pain, abdominal pain, bleeding, fevers, or worsening of medical condition. Patient was counseled about treatment plan, medications, possible side effects, patientverbalized understanding. All questions were answered to the best of my ability. This discharge took greater then 30 minutes in planning, reviewing documentation, counseling the patient, and discussing with other team members." ASSESSMENT ASSESSMENT Assessment Abdominal pain, enteritis Date of Service: Jun 10, 2024 Billing Provider: STARR WILLAMS NP Common Visit Codes: 25532-NFC/OBS DISCH DAY >30min STARR WILLAMS NP Jun 10, 2024 13:12
[2024-06-10 14:06] VITALS: BP 132/52; PULSE 58; RESP 15; TEMP 98.4; O2SAT 96
[2024-06-12 17:07] LABS: Vitamin D 25-Hydroxy 32 ng/mL (.); Vitamin D-2 25-Hydroxy <1.0 ng/mL (.); Vitamin D-3 25-Hydroxy 32 ng/mL (.)
== END 2024-06-10 14:35 | disposition home or self-care (01) | DRG 392 ==
LOC: ER 12:10 → OVERFLOW 20:42 → EAST 20:43
PROVIDERS: ADMIT Nurse Practitioner Acute Care; ATTEND Nurse Practitioner Acute Care
DX: K52.9 Noninfective gastroenteritis and colitis, unspecified (principal); N20.0 Calculus of kidney; I10 Essential (primary) hypertension; E11.9 Type 2 diabetes mellitus without complications; K56.41 Fecal impaction; E83.52 Hypercalcemia; Z87.442 Personal history of urinary calculi
CPT/HCPCS: 36415; 74176; 76775; 80048; 81001; 82306; 82962; 83036; 83970; 84443; 85025; 87040; 96365; 96375; G0378; J1815; J1885; J2405; J2470; J3490

== ENCOUNTER 2024-12-07 08:55 | Inpatient (IN) | payer OTHER, MEDICAID ==
[~2024-12-07] VITALS: Ht 154.9 cm; Wt 63.2 kg
[~2024-12-07 08:55] MED LIST changes: +METR-344 PO
--- NOTE | 2024-12-07 09:31 | ED.PDOC ---
General HPI Comments A 74 YEAR OLD FEMALE PRESENTS TO THE ED WITH COMPLAINT OF BILATERAL FLANK PAIN. PATIENT STATES SHE HAS A HISTORY OF KIDNEY STONES AND HAS BEEN EXPERIENCING BILATERAL FLANK PAIN WITH MILD HEMATURIA FOR THE PAST 13 DAYS. PATIENT NOTES SHE HAS ALSO HAD SMALL URINE OUTPUT WITH HER PAIN. THE PAIN LEVEL IS 10/10 AT THIS TIME. PATIENT DENIES DYSURIA, FEVER, CHILLS, SHORTNESS OF BREATH, CHEST PAIN, ABDOMINAL PAIN, NAUSEA, VOMITING, HEADACHE, OR OTHER COMPLAINTS. NO OTHER SYMPTOMS OR MODIFYING FACTORS AT THIS TIME. PATIENT IS ALERT, ORIENTED X 4, AND HAS STEADY GAIT. Chief Complaint: Flank Pain Time Seen by MD: 09:04 Primary Care Provider: SYLVAIN Valdovinos notes: Nurses Notes, Medications, Allergies Allergies: Coded Allergies: Sulfa Antibiotics (Verified Allergy, Mild, 10/09/13) Home Meds Active Scripts Metronidazole (Flagyl) 500 Mg Tab, 1 TAB PO TID for 5 Days, #15 TAB Prov:STARR WILLAMS [employer] 06/10/24 Ciprofloxacin Hcl (Cipro) 500 Mg Tab, 1 TAB PO BID, #14 TAB Prov:JAIDA ROSALES MD 10/02/23 Prednisone (Prednisone) 10 Mg Tab, 10 MG PO BID for 5 Days, #10 MG 0 Refills Prov:MAISHA KING 09/21/21 Reported Medications Loperamide HCl (Loperamide Hydrochloride) 2 Mg Cap, CAP PO 10/01/23 Cetirizine HCl (Cetirizine Hydrochloride) 10 Mg Tab, 1 TAB PO DAILY 10/01/23 Sitagliptin Phosphate (Januvia) 100 Mg Tab, 1 TAB PO DAILY 10/01/23 Ketoconazole (Ketoconazole) 2 % [facility] 10/01/23 Methylprednisolone (Methylprednisolone) 4 Mg Tab, 1 TAB PO DAILY 10/01/23 Metoprolol Succinate (Metoprolol Succinate Er) 50 Mg Tab, 1 TAB PO DAILY 10/01/23 Amlodipine Besylate (Amlodipine Besylate) 2.5 Mg Tab, 1 TAB PO DAILY, #30 TAB 5 Refills 10/01/23 Glipizide (Glipizide) 10 Mg Tab, 1 TAB PO BID, #60 TAB 5 Refills 10/01/23 Biotin (Vitamin H) (BIOTIN) Unknown Strength Tab, PO DAILY 08/22/20 Cholecalciferol (VITAMIN D3) 2,000 Unit Tab, 1 TAB PO DAILY 08/22/20 Atorvastatin Calcium (ATORVASTATIN CALCIUM) 40 Mg Tab, 1 TAB PO HS 08/22/20 Finasteride (Finasteride) 5 Mg Tab, 0.5 TAB PO DAILY for ALOPECIA FOR ALOPECIA 08/22/20 Losartan Potassium (Losartan Potassium) 100 Mg Tab, 1 TAB PO DAILY 08/22/20 Metformin Hydrochloride (Metformin Hcl) 1,000 Mg Tab, 1000 MG PO BID PER PT, PT TAKES 1000 MG PO AT BREAKFAST, 1000 MG PO AT LUNCH, & 500 MG PO AT DINNER 10/10/13 Information Source: Patient Mode of Arrival: Ambulatory Severity: Moderate Inability to void: None Timing: Days Duration: Since onset, Days Prehospital treatment: None Onset: Spontaneous Symptoms: Hematuria, Other (FLANK PAIN) History of: Kidney stone Location: (R) Flank, (L)Flank Modifying factors: None associated signs and symptoms: Nausea, Flank Pain, Back Pain Past Medical History PAST MEDICAL HISTORY: DM, High Lipids, HTN, Kidney Stones Surgical History: Hysterectomy FACILITY SALES AND ADMIN History: No Pertinent FACILITY SALES AND ADMIN History Family History Family History: Reviewed,noncontributory to illness Social History Smoker: Non-Smoker Alcohol: Denies ETOH Use Drugs: Denies Drug Use Lives In: Home Constitutional: denies: chills, diaphoresis, fatigue, fever, malaise, sweats, weakness, others EENTM: denies: blurred vision, double vision, ear bleeding, ear discharge, ear drainage, ear pain, ear ringing, eye pain, eye redness, hearing loss, mouth pain, mouth swelling, nasal discharge, nose bleeding, nose congestion, nose pain, photophobia, tearing, throat pain, throat swelling, voice changes, others Respiratory: denies: cough, hemoptysis, orthopnea, SOB at rest, shortness of breath, SOB with excertion, stridor, wheezing, others Cardiovascular: denies: chest pain, dizzy spells, diaphoresis, Dyspnea on exertion, edema, irregular heart beat, left arm pain, lightheadedness, palpitations, PND, syncope, others Gastrointestinal: denies: abdomen distended, abdominal pain, blood streaked bowels, constipated, diarrhea, dysphagia, difficulty swallowing, hematemesis, melena, nausea, poor appetite, poor fluid intake, rectal bleeding, rectal pain, vomiting, others Genitourinary: reports: flank pain, hematuria; denies: abnormal vagina bleeding, burning, dyspareunia, dysuria, frequency, incontinence, pain, , vagina discharge, urgency, others Neurological: denies: dizziness, fainting, headache, left sided numbness, left sided weakness, numbness, paresthesia, pre-existing deficit, right sided numbness, right sided weakness, seizure, speech problems, tingling, tremors, weakness, others Musculoskeletal: denies: back pain, gout, joint pain, joint swelling, muscle pain, muscle stiffness, neck pain, others Integumetry: denies: bruises, change in color, change in hair/nails, dryness, laceration, lesions, lumps, rash, wounds, others Allergic/Immunocompromised: denies: Difficulty Healing, Frequent Infections, Hives, Itching, others Hematologic/Lymphatic: denies: anemia, blood clots, easy bleeding, easy bruising, swollen glands, others Endocrine: denies: excessive hunger, excessive sweating, excessive thirst, excessive urination, flushing, intolerance to cold, intolerance to heat, unexplained weight gain, unexplained weight loss, others Psychiatric: denies: anxiety, bipolar disorder, depression, hopeless, panic disorder, schizophrenia, sleepless, suicidal, others All Other Systems: Reviewed and Negative Physical Exam General Appearance: Mild Distress, Normal HEENT: Normal ENT Inspection, PERRL/EOMI, Pharynx Normal, TMs Normal Neck: Full Range of Motion, Non-Tender, Normal, Normal Inspection Respiratory: Chest Non-Tender, Lungs Clear, No Accessory Muscle Use, No Respiratory Distress, Normal Breath Sounds Cardiovascular: No Edema, No JVD, No Murmur, No Gallop, Normal Peripheral Pulses, Regular Rate/Rhythm Breast Exam: Deferred Gastrointestinal: No Organomegaly, No Pulsatile Mass, Normal Bowel Sounds, Soft, Tenderness (BILATERAL FLANK WITH CVA TENDERNESS, NO GUARDING AND REBOUND TENDERNESS. ) Genitalia: Deferred Pelvic: Normal External Exam Rectal: Deferred Extremities: No calf tenderness, Normal capillary refill, Normal inspection, Normal range of motion, Non-tender, No pedal edema Musculoskeletal : Apperance: Normal Neurologic: Alert, clip baker II-XII nml as Tested, No Motor Deficits, Normal Affect, Normal Mood, No Sensory Deficits Cerebellar Function: Normal Reflexes: Normal Skin: Dry, Normal Color, Warm Peripheral Pulses: 2+ carotid (R), 2+ carotid (L) Lymphatic: No Adenopathy Was a procedure done? Was a procedure done?: No Differential Diagnosis Kidney stone (Female): DJD, Musculoskeletal pain, Pyelonephritis, Renal failure, Strain, Urolithiasis Kidney stone (Male): N/A Penile/Scrotal: N/A Urinary Problem (Male): N/A Urinary Problem (Female): Pyelonephritis, UTI, N/A X-Ray, Labs, Meds, VS Vital Signs Date Time Temp Pulse Resp B/P (MAP) Pulse Ox O2 Delivery O2 Flow Rate FiO2 12/07/24 09:13 78 20 96 Room Air 12/07/24 09:13 97.5 78 18 128/67 (87) 96 97.5 12/07/24 08:56 97.5 78 20 128/67 96 97.5 Lab Test 12/07/24 09:25 Range/Units White Blood Count 11.5 H 4.4-10.8 10^3/uL Red Blood Count 4.82 4.0-5.20 10^6/uL Hemoglobin 13.8 12.2-16.2 g/dL Hematocrit 40.4 36.0-46.0 % Mean Corpuscular Volume 83.8 80.0-100.0 fL Mean Corpuscular Hemoglobin 28.6 28.0-32.0 pg Mean Corpuscular Hemoglobin Concent 34.1 32.0-36.0 g/dL Red Cell Distribution Width 14.8 H 11.8-14.3 % Platelet Count 322 140-450 10^3/uL Mean Platelet Volume 7.6 6.9-10.8 fL Neutrophils (%) (Auto) 72.5 37.0-80.0 % Lymphocytes (%) (Auto) 19.0 10.0-50.0 % Monocytes (%) (Auto) 7.2 0.0-12.0 % Eosinophils (%) (Auto) 0.9 0.0-7.0 % Basophils (%) (Auto) 0.4 0.0-2.0 % Neutrophils # (Auto) 8.3 1.6-8.6 10 ^3/uL Lymphocytes # (Auto) 2.2 0.4-5.4 10 ^3/uL Monocytes # (Auto) 0.8 0-1.3 10 ^3/uL Eosinophils # (Auto) 0.1 0-0.8 10 ^3/uL Basophils # (Auto) 0 0-0.2 10 ^3/uL Nucleated Red Blood Cells 0.0 % Sodium Level 137 136-145 mmol/L Potassium Level 3.7 3.5-5.1 mmol/L Chloride Level 104 98-107 mmol/L Carbon Dioxide Level 20 20-31 mmol/L Anion Gap 13 5-15 Blood Urea Nitrogen 21 9-23 mg/dL Creatinine 1.15 H 0.550-1.02 mg/dL Glomerular Filtration Rate Calc 50 >90 mL/min BUN/Creatinine Ratio 18.3 10.0-20.0 Serum Glucose 169 H 74-106 mg/dL Calcium Level 10.7 H 8.7-10.4 mg/dL Total Bilirubin 0.8 0.2-1.0 mg/dL Aspartate Amino Transferase (AST) 15 13-40 U/L Alanine Aminotransferase (ALT) 15 7-40 U/L Alkaline Phosphatase 88 46-116 U/L Total Protein 8.6 H 5.7-8.2 g/dL Albumin 4.9 H 3.2-4.8 g/dL CLINICAL INFORMATION: Bilateral flank pain. History of kidney stones. TECHNIQUE: Axial CT images of the abdomen and pelvis were obtained without IV contrast. Coronal and sagittal reformatted images were obtained, reviewed, and stored. Evaluation of the parenchymal organs is limited without IV contrast. Evaluation of the bowel and mesentery is limited without oral contrast. All CT scans at this medical facility are performed using dose modulation techniques as appropriate to a performed exam including the following: Automated exposure control was utilized; adjustment of the MA and/or KV according to patient size; and use of iterative reconstruction technique. CTDIvol = 7.36 mGy DLP = 391.54 mGy-cm COMPARISON: CT CT AB PEL WO CON-NO ORAL OR IV on DOS: 06/08/24, CT CT AB PEL WO CON-NO ORAL OR IV on DOS: 10/01/23, CT ABD PELVIS WO CONTRAST on DOS: 08/22/20 FINDINGS: Lung bases: Lung bases are clear. Small hiatal hernia. Liver: Hepatomegaly, with the liver measuring up to 18.5 cm in craniocaudal dimension at the midclavicular line. There is hepatic steatosis. Biliary: No calcified gallstones or biliary ductal dilatation. Spleen: Unremarkable. Pancreas: Grossly unremarkable in its noncontrast enhanced appearance. Adrenal glands: 1 cm left adrenal nodule is minimally changed compared to prior exams dating back to 08/22/2020, likely benign adenoma. Kidneys and bladder: Bilateral renal calculi, including staghorn calculi in the right kidney, including at the right renal pelvis measuring up to 2.1 cm in greatest aggregate dimension at the right renal pelvis. No hydronephrosis. No ureteral calculi. There is a 2 mm calculus in the left posterior bladder, in close proximity to the left ureterovesical junction, possible recently passed calculus. There is scarring in both kidneys, right greater than left. Aorta/Vascular: Dense arterial calcification. No abdominal aortic aneurysm. Lymph nodes: No mass or lymphadenopathy. Bowel/mesentery: No small bowel obstruction. No free air or free fluid. Appendix is visualized and appears unremarkable. Pelvic organs: Uterus is surgically absent. Abdominal wall: No mass or hernia. Bones: No acute fracture or suspicious intraosseous lesion. Degenerative disc disease in the lumbar spine and visualized portions of the thoracic spine with areas of severe disc space narrowing, endplate sclerosis, and endplate spurring. IMPRESSION: 1. Bilateral renal calculi, including staghorn calculi in the right kidney. 2 mm calculus in the left posterior bladder, in close proximity to the left ureterovesical junction, possibly recently passed calculus. No hydronephrosis. 2. Scarring of both kidneys, right greater than left. 3. Stable left adrenal nodule, most likely a benign adenoma. 4. Hepatomegaly and hepatic steatosis. 5. Small hiatal hernia. 6. Additional findings as described above. ATED BY: ALFIE PULIDO DO DICTATED DATE/TIME: 12/07/241005 SIGNED BY: ALFIE PULIDO DO SIGNED DATE/TIME: 12/07/241005 CC: X-Ray, Labs, Meds, VS Comment EXTERNAL MEDICAL RECORDS REVIEWED: [NONE] INDEPENDENT HISTORIANS: [NONE] SOCIAL DETERMINANTS OF HEALTH: [NONE] LABS ORDERED: CBC, BMP, UA REVIEWED AND INTERPRETED RESULTS: NORMAL, PATIENT DID NOT PROVIDE URINE. IMAGING ORDERED: CT ABD/PEL TREATMENTS ORDERED: NS 1 L IV, MORPHINE 2 MG IV AND ZOFRAN 4MG IVP PROCEDURES PERFORMED: NONE CRITICAL CARE TIME: NONE I HAVE DISCUSSED THE PATIENT WITH THE ATTENDING PHYSICIAN DR. CAMPBELL AND HE AGREES WITH THE PATIENT'S PLAN OF CARE. UPON MY PHYSICAL EXAMINATION, THE PATIENT HAD BILATERAL CVA TENDERNESS NOTED UPON PALPATION, BUT NO GUARDING OR REBOUND TENDERNESS NOTED UPON PALPATION TO HER ABDOMEN. A CT SCAN OF THE PATIENT'S ABDOMEN AND PELVIS WAS DONE WHICH REVEALED A RIGHT STAGHORN CALCULUS AND BILATERAL RENAL STONES. DUE TO THE PATIENT'S INTRACTABLE PAIN, BILATERAL RENAL STONES, AND MEDICAL HISTORY, I HAVE DETERMINED THE PATIENT SHOULD BE ADMITTED FOR FURTHER TREATMENT AND EVALUATION. THE ON-CALL HOSPITALIST WILL BE CONTACTED FOR ADMISSION OF THIS PATIENT. Images Reviewed?: Images reviewed and evaluated by me Time of 1ST Reevaluation: 11:00 Reevaluation 1ST: Unchanged Patient Education/Counseling: Diagnosis, Treatment Family Education/Counseling: Diagnosis, Treatment SEPSIS Sepsis Screen Date sepsis recognized/suspect: Dec 07, 2024 Time Sepsis recognized/suspect: 0858 Recent Procedure: No On Antibiotic Therapy: No Respiratory Rate >20: No Heart Rate >90: No Temp<36 C (96.8 F) or >38.3 C: No SBP <90 or MAP <65 mmHG: No New Acute Mental Status Change: No Is the patient on CPAP, BIPAP,: No Physician Orders Urinalysis (12/07/24 09:10) Ct Ab Pel Wo Con-No Oral Or Iv (12/07/24 09:28) Heplock Iv (12/07/24 ) Morphine Sulfate Injection (12/07/24 11:15) Ondansetron Hcl (Zofran) (12/07/24 11:15) Sodium Chloride 0.9% (12/07/24 11:15) Vital Signs Date Time Temp Pulse Resp B/P (MAP) Pulse Ox O2 Delivery O2 Flow Rate FiO2 12/07/24 09:13 78 20 96 Room Air 12/07/24 09:13 97.5 78 18 128/67 (87) 96 97.5 12/07/24 08:56 97.5 78 20 128/67 96 97.5 Laboratory Tests Test 12/07/24 09:25 White Blood Count 11.5 10^3/uL (4.4-10.8) H Departure 1 Departure Time of Disposition: 11:17 Impression: Primary Impression: Bilateral renal stones Additional Impressions: Staghorn renal calculus Intractable pain Disposition: ADMITTED INPATIENT Condition: Serious Critical Care Note Critical Care Time?: No Stability Stability form required: Yes Unstable for transfer: Requires medication, ED Physician Assesment, Possible rapid decline I personally scribed for MARCOS PINEDA ([email or web address]) on 12/07/24 at 09:31. Electronically submitted by Troy Marquez ([email or web address]). I personally scribed for MARCOS PINEDA ([email or web address]) on 12/07/24 at 10:28. Electronically submitted by Troy Marquez ([email or web address]). I personally scribed for MARCOS PINEDA ([email or web address]) on 12/07/24 at 10:52. Electronically submitted by Troy Marquez ([email or web address]). I personally scribed for MARCOS PINEDA ([email or web address]) on 12/07/24 at 11:05. Electronically submitted by Troy Marquez ([email or web address]). I personally scribed for MARCOS PINEDA ([email or web address]) on 12/07/24 at 11:12. Electronically submitted by Troy Marquez ([email or web address]). MARCOS PINEDA Dec 07, 2024 09:31
[2024-12-07 09:38] LABS: Hematocrit 40.4 % (36.0-46.0); Hemoglobin 13.8 g/dL (12.2-16.2); Mean Corpuscular Hemoglobin 28.6 pg (28.0-32.0); Mean Corpuscular Volume 83.8 fL (80.0-100.0); Nucleated Red Blood Cells % 0.0 %
[2024-12-07 09:57] LABS: Alanine Aminotransferase 15 U/L (7-40); Alkaline Phosphatase 88 U/L (46-116); Anion Gap 13 (5-15); BUN/Creatinine Ratio 18.3 (10.0-20.0); Bilirubin, Total 0.8 mg/dL (0.2-1.0); Blood Urea Nitrogen 21 mg/dL (9-23); Carbon Dioxide 20 mmol/L (20-31); Chloride 104 mmol/L (98-107); Potassium 3.7 mmol/L (3.5-5.1); Sodium 137 mmol/L (136-145)
[2024-12-07 10:01] LABS: Albumin 4.9 g/dL (3.2-4.8); Calcium 10.7 mg/dL (8.7-10.4); Glucose 169 mg/dL (74-106); Total Protein 8.6 g/dL (5.7-8.2)
--- NOTE | 2024-12-07 10:09 | DVH ---
CLINICAL INFORMATION: Bilateral flank pain. History of kidney stones. TECHNIQUE: Axial CT images of the abdomen and pelvis were obtained without IV contrast. Coronal and s agittal reformatted images were obtained, reviewed, and stored. Evaluation of the parenchymal organs is limited without IV contrast. Evaluation of the bowel and mesentery is limited without oral contras t. All CT scans at this medical facility are performed using dose modulation techniques as appropriat e to a performed exam including the following: Automated exposure control was utilized; adjustment of the MA and/or KV according to patient size; and use of iterative reconstruction technique. CTDIvol = 7.36 mGy DLP = 391.54 mGy-cm COMPARISON: CT CT AB PEL WO CON-NO ORAL OR IV on DOS: 06/08/24, CT CT AB PEL WO CON-NO ORAL OR IV on DO S: 10/01/23, CT ABD PELVIS WO CONTRAST on DOS: 08/22/20 FINDINGS: Lung bases: Lung bases are clear. Small hiatal hernia. Liver: Hepatomegaly, with the liver measuring up to 18.5 cm in craniocaudal dimension at the midclavi cular line. There is hepatic steatosis. Biliary: No calcified gallstones or biliary ductal dilatation. Spleen: Unremarkable. Pancreas: Grossly unremarkable in its noncontrast enhanced appearance. Adrenal glands: 1 cm left adrenal nodule is minimally changed compared to prior exams dating back to 08/22/2020, likely benign adenoma. Kidneys and bladder: Bilateral renal calculi, including staghorn calculi in the right kidney, includi ng at the right renal pelvis measuring up to 2.1 cm in greatest aggregate dimension at the right ra l pelvis. No hydronephrosis. No ureteral calculi. There is a 2 mm calculus in the left posterior blad lul, in close proximity to the left ureterovesical junction, possible recently passed calculus. There is scarring in both kidneys, right greater than left. Aorta/Vascular: Dense arterial calcification. No abdominal aortic aneurysm. Lymph nodes: No mass or lymphadenopathy. Bowel/mesentery: No small bowel obstruction. No free air or free fluid. Appendix is visualized and ap pears unremarkable. Pelvic organs: Uterus is surgically absent. Abdominal wall: No mass or hernia. Bones: No acute fracture or suspicious intraosseous lesion. Degenerative disc disease in the lumbar s pine and visualized portions of the thoracic spine with areas of severe disc space narrowing, endplat e sclerosis, and endplate spurring. IMPRESSION: 1. Bilateral renal calculi, including staghorn calculi in the right kidney. 2 mm calculus in the left posterior bladder, in close proximity to the left ureterovesical junction, possibly recently passed calculus. No hydronephrosis. 2. Scarring of both kidneys, right greater than left. 3. Stable left adrenal nodule, most likely a benign adenoma. 4. Hepatomegaly and hepatic steatosis. 5. Small hiatal hernia. 6. Additional findings as described above.
--- NOTE | 2024-12-07 12:58 | DVHHP2 ---
History of Present Illness Reason for Visit: Bilateral flank pain History of Present Illness Carmel Davis is a 74-year-old female with past medical history of nephrolithiasis, hypertension, diabetes, hyperlipidemia, 8-9 lithotripsies, and hysterectomy who presents to the ED with bilateral flank pain along with light hematuria x 13 days. Patient also reports that she has been having less output when she voids. Patient reports that the pain on the right is greater than the left. She reports that the pain is 10/10 sharp and constant. She states that moving makes it worse. Patient reports that she is compliant with her medications. Patient denies any recent trauma or injury, recent sick contacts, recent ingestion of spoiled food, recent travels, chest pain, shortness of breath, fever, chills, lightheadedness, weakness, dizziness, nausea, vomiting, or diarrhea. Cardiovascular: HTN, hyperipidemia Endocrine: Diabetes Past Medical History Nephrolithiasis Past Surgical History: Hysterectomy, Other (8 9 lithotripsies) Family History: DM, Other (Mom with diabetes) Smoke: No ALCOHOL: none Drugs: None Lives: with Family Domestic Violence: Neg Review of Systems Genitourinary: Hematuria Musculoskeletal: other (Bilateral flank pain) Allergies: Coded Allergies: Sulfa Antibiotics (Verified Allergy, Mild, 10/09/13) Exam Vital Signs Vital Signs Date Time Temp Pulse Resp B/P (MAP) Pulse Ox O2 Delivery O2 Flow Rate FiO2 12/07/24 09:13 78 20 96 Room Air 12/07/24 09:13 97.5 128/67 (87) 97.5 General Appearance: Alert, Oriented X3, Cooperative, No acute distress HEENT: Atraumatic, PERRLA, EOMI, Mucous membr. moist/pink Respiratory: Clear to auscultation, Normal air movement Cardiovascular: Regular rate, Normal S1, Normal S2, No murmurs Abdominal: Normal bowel sounds, Soft Extremities: No edema, Normal pulses Skin: No significant lesion Neuro: Normal speech, Strength at 5/5 X4 ext, Normal tone, Sensation intact Psych/Mental Status: Mental status NL, Mood NL Labs/Xrays Labs Test 12/07/24 09:25 Range/Units White Blood Count 11.5 H 4.4-10.8 10^3/uL Red Blood Count 4.82 4.0-5.20 10^6/uL Hemoglobin 13.8 12.2-16.2 g/dL Hematocrit 40.4 36.0-46.0 % Mean Corpuscular Volume 83.8 80.0-100.0 fL Mean Corpuscular Hemoglobin 28.6 28.0-32.0 pg Mean Corpuscular Hemoglobin Concent 34.1 32.0-36.0 g/dL Red Cell Distribution Width 14.8 H 11.8-14.3 % Platelet Count 322 140-450 10^3/uL Mean Platelet Volume 7.6 6.9-10.8 fL Neutrophils (%) (Auto) 72.5 37.0-80.0 % Lymphocytes (%) (Auto) 19.0 10.0-50.0 % Monocytes (%) (Auto) 7.2 0.0-12.0 % Eosinophils (%) (Auto) 0.9 0.0-7.0 % Basophils (%) (Auto) 0.4 0.0-2.0 % Neutrophils # (Auto) 8.3 1.6-8.6 10 ^3/uL Lymphocytes # (Auto) 2.2 0.4-5.4 10 ^3/uL Monocytes # (Auto) 0.8 0-1.3 10 ^3/uL Eosinophils # (Auto) 0.1 0-0.8 10 ^3/uL Basophils # (Auto) 0 0-0.2 10 ^3/uL Nucleated Red Blood Cells 0.0 % Sodium Level 137 136-145 mmol/L Potassium Level 3.7 3.5-5.1 mmol/L Chloride Level 104 98-107 mmol/L Carbon Dioxide Level 20 20-31 mmol/L Anion Gap 13 5-15 Blood Urea Nitrogen 21 9-23 mg/dL Creatinine 1.15 H 0.550-1.02 mg/dL Glomerular Filtration Rate Calc 50 >90 mL/min BUN/Creatinine Ratio 18.3 10.0-20.0 Serum Glucose 169 H 74-106 mg/dL Calcium Level 10.7 H 8.7-10.4 mg/dL Total Bilirubin 0.8 0.2-1.0 mg/dL Aspartate Amino Transferase (AST) 15 13-40 U/L Alanine Aminotransferase (ALT) 15 7-40 U/L Alkaline Phosphatase 88 46-116 U/L Total Protein 8.6 H 5.7-8.2 g/dL Albumin 4.9 H 3.2-4.8 g/dL CLINICAL INFORMATION: Bilateral flank pain. History of kidney stones. TECHNIQUE: Axial CT images of the abdomen and pelvis were obtained without IV contrast. Coronal and sagittal reformatted images were obtained, reviewed, and stored. Evaluation of the parenchymal organs is limited without IV contrast. Evaluation of the bowel and mesentery is limited without oral contrast. All CT scans at this medical facility are performed using dose modulation techniques as appropriate to a performed exam including the following: Automated exposure control was utilized; adjustment of the MA and/or KV according to patient size; and use of iterative reconstruction technique. CTDIvol = 7.36 mGy DLP = 391.54 mGy-cm COMPARISON: CT CT AB PEL WO CON-NO ORAL OR IV on DOS: 06/08/24, CT CT AB PEL WO CON-NO ORAL OR IV on DOS: 10/01/23, CT ABD PELVIS WO CONTRAST on DOS: 08/22/20 FINDINGS: Lung bases: Lung bases are clear. Small hiatal hernia. Liver: Hepatomegaly, with the liver measuring up to 18.5 cm in craniocaudal dimension at the midclavicular line. There is hepatic steatosis. Biliary: No calcified gallstones or biliary ductal dilatation. Spleen: Unremarkable. Pancreas: Grossly unremarkable in its noncontrast enhanced appearance. Adrenal glands: 1 cm left adrenal nodule is minimally changed compared to prior exams dating back to 08/22/2020, likely benign adenoma. Kidneys and bladder: Bilateral renal calculi, including staghorn calculi in the right kidney, including at the right renal pelvis measuring up to 2.1 cm in greatest aggregate dimension at the right renal pelvis. No hydronephrosis. No ureteral calculi. There is a 2 mm calculus in the left posterior bladder, in close proximity to the left ureterovesical junction, possible recently passed calculus. There is scarring in both kidneys, right greater than left. Aorta/Vascular: Dense arterial calcification. No abdominal aortic aneurysm. Lymph nodes: No mass or lymphadenopathy. Bowel/mesentery: No small bowel obstruction. No free air or free fluid. Appendix is visualized and appears unremarkable. Pelvic organs: Uterus is surgically absent. Abdominal wall: No mass or hernia. Bones: No acute fracture or suspicious intraosseous lesion. Degenerative disc disease in the lumbar spine and visualized portions of the thoracic spine with areas of severe disc space narrowing, endplate sclerosis, and endplate spurring. IMPRESSION: 1. Bilateral renal calculi, including staghorn calculi in the right kidney. 2 mm calculus in the left posterior bladder, in close proximity to the left ureterovesical junction, possibly recently passed calculus. No hydronephrosis. 2. Scarring of both kidneys, right greater than left. 3. Stable left adrenal nodule, most likely a benign adenoma. 4. Hepatomegaly and hepatic steatosis. 5. Small hiatal hernia. 6. Additional findings as described above. SEPSIS Sepsis Screen Date sepsis recognized/suspect: Dec 07, 2024 Time Sepsis recognized/suspect: 0858 Recent Procedure: No On Antibiotic Therapy: No Respiratory Rate >20: No Heart Rate >90: No Temp<36 C (96.8 F) or >38.3 C: No SBP <90 or MAP <65 mmHG: No New Acute Mental Status Change: No Is the patient on CPAP, BIPAP,: No Physician Orders Urinalysis (12/07/24 09:10) Ct Ab Pel Wo Con-No Oral Or Iv (12/07/24 09:28) Heplock Iv (12/07/24 ) Vital Signs Date Time Temp Pulse Resp B/P (MAP) Pulse Ox O2 Delivery O2 Flow Rate FiO2 12/07/24 09:13 78 20 96 Room Air 12/07/24 09:13 97.5 78 18 128/67 (87) 96 97.5 12/07/24 08:56 97.5 78 20 128/67 96 97.5 Laboratory Tests Test 12/07/24 09:25 White Blood Count 11.5 10^3/uL (4.4-10.8) H Assessment/Plan Assessment/Plan Assessment Intractable bilateral flank pain Leukocytosis unclear etiology MORRIS likely due to obstruction Bilateral renal calculi, including staghorn calculi in the right kidney. 2 mm calculus in the left posterior bladder, in close proximity to the left ureterovesical junction, possibly recently passed calculus. Stable left adrenal nodule, most likely a benign adenoma. Hepatomegaly and hepatic steatosis. Small hiatal hernia History of nephrolithiasis History of hypertension History of diabetes History of hyperlipidemia History of 8-9 lithotripsies History of hysterectomy Plan Admit to med surge IV antibiotics-ceftriaxone NS 1 L given ED Antiemetics Pain management - IV morphine UA CT abdomen and pelvis noted UDS Urine culture Lactic level Blood cultures Hemoglobin A1c ISS and Accu-Cheks IV fluids Diet Home medications reconciled DVT prophylaxis-SCDs PUD prophylaxis-not indicated no history of GERD or GI bleed Discussed plan of care with patient and nurse [id number] Preventive counseling healthy eating habits, physical activity, and regular checkups Plan discussed with: Patient Date of Service: Dec 07, 2024 Billing Provider: SUE SORTO Common Visit Codes: [id number] INP/OBS CARE (HIGH) Secondary Visit Codes: [id number] COUNSELING IND SUE SORTO Dec 07, 2024 12:58
[2024-12-07] MEDS ORDERED: ACETAMINOPHEN 325 MG TAB PO PRN (13:00)
[2024-12-07] MEDS ORDERED: MORPHINE SULFATE INJ 2 MG/ml SYRG IV PRN (13:00)
[2024-12-07] MEDS ORDERED: DEXTROSE (50%) 50ML SYRG IV PRN (13:00)
[2024-12-07] MEDS: SODIUM CHLORIDE 0.9% 1,000 ML IV ONE (13:05)
[2024-12-07] MEDS: ONDANSETRON HCL 4 MG/2 ML VIAL IV ONE (13:05)
[2024-12-07] MEDS: MORPHINE SULFATE INJ 2 MG/ml SYRG IV ONE (13:05)
[2024-12-07] MEDS: MORPHINE SULFATE 4 MG/ML SYR/VIAL ONE (13:21)
[2024-12-07] MEDS: MORPHINE SULFATE 4 MG/ML SYR/VIAL IV PRN (13:21)
[2024-12-07] MEDS: ONDANSETRON HCL 4 MG/2 ML VIAL IV PRN (13:22)
[2024-12-07 15:17] VITALS: RESP 16
[2024-12-07] MEDS: ACCU-CHEK COMFORT CURVE STRIP VI SCH (16:41)
[2024-12-07] MEDS: SODIUM CHLORIDE 0.9% 1,000 ML IV SCH (16:43)
[2024-12-07] MEDS: InsuLIN REG 1unit/0.01ml Soln (100units/ml) SC SCH (16:54)
[2024-12-07 17:00] VITALS: BP 118/58; PULSE 62; RESP 16; TEMP 98.6; O2SAT 94
[2024-12-07 20:00] VITALS: O2SAT 98
[2024-12-07 20:17] LABS: Urine Protein, UAD TRACE (Negative)
[2024-12-07 20:30] LABS: Opiate Scree,Urine Pos (NEGATIVE)
[2024-12-07 20:31] LABS: Amphetamine Screen, Urine Neg (NEGATIVE); Barbiturate Scree,Urine Neg (NEGATIVE); Benzodiazephine Screen, Urine Neg (NEGATIVE); Cannabinoid Screen, Urine Neg (NEGATIVE); Cocaine Screen, Urine Neg (NEGATIVE); Phencyclidine Screen, Urine Neg (NEGATIVE)
[2024-12-07 21:00] VITALS: BP 124/68; PULSE 60; RESP 16; TEMP 98.7; O2SAT 95
[2024-12-07] MEDS ORDERED: PATIENTS OWN MEDICATION (Atorvastatin Calcium 1 TAB) PO SCH (22:00)
[2024-12-07] MEDS: ATORVASTATIN 20 MG TAB PO SCH (22:25)
[2024-12-08] VITALS (7 sets, daily range): BP systolic 118–143; BP diastolic 53–85; PULSE 58–67; RESP 16–19; TEMP 98–99; O2SAT 96–98
[2024-12-08] MEDS: HYDROcodone-ACET 5/325MG TAB PO PRN (02:32)
[2024-12-08 06:51] LABS: Hematocrit 35.3 % (36.0-46.0); Hemoglobin 11.9 g/dL (12.2-16.2); Mean Corpuscular Hemoglobin 28.6 pg (28.0-32.0); Mean Corpuscular Volume 84.5 fL (80.0-100.0); Nucleated Red Blood Cells % 0.0 %
[2024-12-08 07:04] LABS: Alanine Aminotransferase 11 U/L (7-40); Alkaline Phosphatase 72 U/L (46-116); Anion Gap 11 (5-15); BUN/Creatinine Ratio 18.6 (10.0-20.0); Blood Urea Nitrogen 16 mg/dL (9-23); Calcium 9.5 mg/dL (8.7-10.4); Carbon Dioxide 21 mmol/L (20-31); Chloride 106 mmol/L (98-107); Potassium 4.5 mmol/L (3.5-5.1); Sodium 138 mmol/L (136-145); Total Protein 7.0 g/dL (5.7-8.2)
[2024-12-08 07:05] LABS: Albumin 4.0 g/dL (3.2-4.8); Glucose 164 mg/dL (74-106)
[2024-12-08 07:06] LABS: Bilirubin, Total 0.7 mg/dL (0.2-1.0)
[2024-12-08] MEDS: FINASTERIDE 5 MG TAB PO SCH (08:56)
[2024-12-08] MEDS: CHOLECALCIFEROL (VITD3) 1,000UNIT=25mCg TAB PO SCH (08:56)
[2024-12-08] MEDS: LOSARTAN POTASSIUM 50 MG TAB PO SCH (08:58)
[2024-12-08] MEDS: METOPROLOL SUCCINATE XL 50 MG TAB PO SCH (08:59)
[2024-12-08] MEDS ORDERED: PATIENTS OWN MEDICATION (Cholecalciferol (Vitamin D3) 1 TAB) PO SCH (10:00)
[2024-12-08] MEDS ORDERED: PATIENTS OWN MEDICATION (Amlodipine Besylate 1 TAB) PO SCH (10:00)
[2024-12-08] MEDS ORDERED: PATIENTS OWN MEDICATION (Losartan Potassium 1 TAB) PO SCH (10:00)
--- NOTE | 2024-12-08 13:23 | DVHPN2 ---
Changes from previous H/P or p: No Changes Genitourinary: Hematuria Musculoskeletal: other (Bilateral flank pain) Objective Vitals Vital Signs Date Time Temp Pulse Resp B/P (MAP) Pulse Ox O2 Delivery O2 Flow Rate FiO2 12/08/24 09:00 99.0 67 19 143/85 (104) 97 99.0 12/08/24 08:00 Room Air* 0 21 Intake/Output Intake and Output 12/08/24 07:00 Intake Total 1460 ml Balance 1460 ml Intake Oral 410 ml IV Total 1050 ml # Voids 2 Medications Current Medications Medications Dose Ordered Sig/Adis Route Start Time Stop Time Status Last Admin Dose Admin Ceftriaxone Sodium 50 ml @ 100 mls/hr DAILY@09 IV 12/07/24 13:00 12/08/24 08:55 100 MLS/HR Acetaminophen/ Hydrocodone Bitart 1 tab Q4HP PRN PO 12/07/24 13:00 12/08/24 08:54 1 TAB Ondansetron HCl 4 mg Q4HP PRN IV 12/07/24 13:00 Acetaminophen 650 mg Q6HP PRN PO 12/07/24 13:00 Morphine Sulfate 2 mg Q4HPRN PRN IV 12/07/24 13:00 UNV Diagnostic Test (Pha) 1 strip ACHS 12/07/24 17:00 12/08/24 10:49 1 STRIP Insulin Human Regular ACHS SC 12/07/24 17:00 12/08/24 11:03 4 UNITS Dextrose 50 ml UD PRN IV 12/07/24 13:00 Morphine Sulfate 2 mg Q4HPRN PRN IV 12/07/24 13:15 12/07/24 22:37 2 MG Finasteride 2.5 mg DAILY PO 12/08/24 10:00 12/08/24 08:56 2.5 MG Metoprolol Succinate 50 mg DAILY PO 12/08/24 10:00 12/08/24 08:59 50 MG Patient Own Medication 1 tab DAILY PO 12/08/24 10:00 UNV Patient Own Medication 1 tab HS PO 12/07/24 22:00 UNV Patient Own Medication 1 tab DAILY PO 12/08/24 10:00 UNV Patient Own Medication 1 tab DAILY PO 12/08/24 10:00 UNV Sodium Chloride 1,000 ml @ 75 mls/hr [id number] IV 12/07/24 14:30 12/08/24 03:50 75 MLS/HR Amlodipine Besylate 2.5 mg DAILY PO 12/08/24 10:00 12/08/24 08:57 2.5 MG Atorvastatin Calcium 40 mg HS PO 12/07/24 22:00 12/07/24 22:25 40 MG Cholecalciferol 2,000 unit DAILY PO 12/08/24 10:00 12/08/24 08:56 2,000 UNIT Losartan Potassium 100 mg DAILY PO 12/08/24 10:00 12/08/24 08:58 100 MG Laboratory Results Laboratory Tests 12/08/24 05:15 Chemistry Test 12/08/24 05:15 Albumin 4.0 g/dL (3.2-4.8) Calcium Level 9.5 mg/dL (8.7-10.4) Total Protein 7.0 g/dL (5.7-8.2) LFT Test 12/08/24 05:15 Alanine Aminotransferase (ALT) 11 U/L (7-40) Alkaline Phosphatase 72 U/L (46-116) Aspartate Amino Transferase (AST) 11 U/L (13-40) L Total Bilirubin 0.7 mg/dL (0.2-1.0) Urinalysis Test 12/07/24 19:00 Urine Color Light-yellow (Yellow) Urine Clarity Clear (Clear) Urine pH 5.0 (5.0-9.0) Urine Specific [place] 1.018 (1.001-1.035) Urine Protein Trace (Negative) H Urine Ketones Negative (Negative) Urine Blood 2+ /uL (Negative) H Urine Nitrite Negative (Negative) Urine Bilirubin Negative (Negative) Urine Urobilinogen Normal mg/dL (Negative) Urine Leukocyte Esterase 2+ /uL (Negative) Urine RBC 38 /hpf (0 - 4) Urine Microscopic WBC 32 /HPF (0-5) H Urine Squamous Epithelial Cells Few /hpf (<5) Urine Bacteria None seen /hpf (None Seen) Urine Hyaline Casts Few /lpf (0 - 2) Urine Glucose 4+ mg/dL (Normal) H Microbiology Microbiology Date/Time Source Procedure Growth Status 12/07/24 19:00 Voided Urine Urine Culture - Preliminary Resulted Labs and/or images reviewed: Labs reviewed by me, Image(s) reviewed by me Assessment/Plan Assessment/Plan Intractable bilateral flank pain Leukocytosis unclear etiology MORRIS likely due to obstruction Bilateral renal calculi, including staghorn calculi in the right kidney. 2 mm calculus in the left posterior bladder, in close proximity to the left ureterovesical junction, possibly recently passed calculus.; consult for urology Dr. Coles pain medications, IV fluids Hepatomegaly and hepatic steatosis. Small hiatal hernia History of nephrolithiasis History of hypertension History of diabetes History of hyperlipidemia History of 8-9 lithotripsies History of hysterectomy Plan discussed with: Patient My Orders Orders - JAIDA ROSALES MD Procedure Category Date Status Time * Urology Consult CONS 12/08/24 Verified 13:13 Date of Service: Dec 08, 2024 Billing Provider: JAIDA ROSALES MD Common Visit Codes: [id number] INP/OBS CARE(HIGH) JAIDA ROSALES MD Dec 08, 2024 13:23
[2024-12-08] MEDS: HYDROcodone-ACET 10/325MG TAB PO SCH (17:43)
[2024-12-09 01:00] VITALS: BP 135/48; PULSE 67; RESP 22; TEMP 98.5; O2SAT 99
[2024-12-09 05:00] VITALS: BP 135/54; PULSE 64; RESP 19; TEMP 98.2; O2SAT 98
--- NOTE | 2024-12-09 08:26 | DVHPN2 ---
Reviewed: Care Plan, H&P, Labs, Medications, Previous Orders, Radiology Changes from previous H/P or p: No Changes Genitourinary: Hematuria Musculoskeletal: other (Bilateral flank pain) Objective Vitals Vital Signs Date Time Temp Pulse Resp B/P (MAP) Pulse Ox O2 Delivery O2 Flow Rate FiO2 12/09/24 07:31 Room Air* 0 21 12/09/24 05:00 98.2 64 19 135/54 (81) 98 98.2 Intake/Output Intake and Output 12/09/24 07:00 Intake Total 600 ml Balance 600 ml Intake Oral 550 ml IV Total 50 ml # Voids 8 Medications Current Medications Medications Dose Ordered Sig/Adis Route Start Time Stop Time Status Last Admin Dose Admin Ceftriaxone Sodium 50 ml @ 100 mls/hr DAILY@09 IV 12/07/24 13:00 12/08/24 08:55 100 MLS/HR Ondansetron HCl 4 mg Q4HP PRN IV 12/07/24 13:00 Acetaminophen 650 mg Q6HP PRN PO 12/07/24 13:00 Morphine Sulfate 2 mg Q4HPRN PRN IV 12/07/24 13:00 UNV Diagnostic Test (Pha) 1 strip ACHS 12/07/24 17:00 12/09/24 06:21 1 STRIP Insulin Human Regular ACHS SC 12/07/24 17:00 12/09/24 06:20 3 UNITS Dextrose 50 ml UD PRN IV 12/07/24 13:00 Finasteride 2.5 mg DAILY PO 12/08/24 10:00 12/08/24 08:56 2.5 MG Metoprolol Succinate 50 mg DAILY PO 12/08/24 10:00 12/08/24 08:59 50 MG Patient Own Medication 1 tab DAILY PO 12/08/24 10:00 UNV Patient Own Medication 1 tab HS PO 12/07/24 22:00 UNV Patient Own Medication 1 tab DAILY PO 12/08/24 10:00 UNV Patient Own Medication 1 tab DAILY PO 12/08/24 10:00 UNV Sodium Chloride 1,000 ml @ 75 mls/hr [id number] IV 12/07/24 14:30 12/09/24 06:21 75 MLS/HR Amlodipine Besylate 2.5 mg DAILY PO 12/08/24 10:00 12/08/24 08:57 2.5 MG Atorvastatin Calcium 40 mg HS PO 12/07/24 22:00 12/08/24 22:20 40 MG Cholecalciferol 2,000 unit DAILY PO 12/08/24 10:00 12/08/24 08:56 2,000 UNIT Losartan Potassium 100 mg DAILY PO 12/08/24 10:00 12/08/24 08:58 100 MG Acetaminophen/ Hydrocodone Bitart 1 tab Q6HP PO 12/08/24 17:00 12/09/24 06:16 1 TAB Cyanocobalamin 500 mcg DAILY PO 12/09/24 10:00 Folic Acid 1 mg DAILY PO 12/09/24 10:00 Laboratory Results Laboratory Tests 12/08/24 05:15 Urinalysis Test 12/07/24 19:00 Urine Color Light-yellow (Yellow) Urine Clarity Clear (Clear) Urine pH 5.0 (5.0-9.0) Urine Specific [place] 1.018 (1.001-1.035) Urine Protein Trace (Negative) H Urine Ketones Negative (Negative) Urine Blood 2+ /uL (Negative) H Urine Nitrite Negative (Negative) Urine Bilirubin Negative (Negative) Urine Urobilinogen Normal mg/dL (Negative) Urine Leukocyte Esterase 2+ /uL (Negative) Urine RBC 38 /hpf (0 - 4) Urine Microscopic WBC 32 /HPF (0-5) H Urine Squamous Epithelial Cells Few /hpf (<5) Urine Bacteria None seen /hpf (None Seen) Urine Hyaline Casts Few /lpf (0 - 2) Urine Glucose 4+ mg/dL (Normal) H Microbiology Microbiology Date/Time Source Procedure Growth Status 12/07/24 19:00 Voided Urine Urine Culture - Preliminary Resulted 12/07/24 14:35 Blood Blood Culture - Preliminary NO GROWTH AFTER 24 HOURS OF INCUBATION. Resulted Labs and/or images reviewed: Labs reviewed by me, Image(s) reviewed by me Assessment/Plan Assessment/Plan Intractable bilateral flank pain : Pain meds Acute urinary tract infection: Blood cultures urine cultures Rocephin MORRIS likely due to obstruction Bilateral renal calculi, including staghorn calculi in the right kidney. 2 mm calculus in the left posterior bladder, in close proximity to the left ureterovesical junction, possibly recently passed calculus.; consult for urology Dr. Sanket alston, pain medications, IV fluids Hepatomegaly and hepatic steatosis. Small hiatal hernia Nephrolithiasis Hypertension Diabetes Hypercholesterolemia History of 8-9 lithotripsies Plan discussed with: Patient My Orders Orders - JAIDA ROSALES MD Procedure Category Date Status Time * Urology Consult CONS 12/08/24 Transmitted 13:13 Hydrocodone-Acet PHA 12/08/24 In Process 10/325mg Tab ([place] 17:00 Cyanocobalamin PHA 12/09/24 In Process (Vitamin B-12) 10:00 Folic Acid Tablet PHA 12/09/24 In Process 10:00 Date of Service: Dec 09, 2024 Billing Provider: JAIDA ROSALES MD Common Visit Codes: [id number] INP/OBS CARE(HIGH) JAIDA ROSALES MD Dec 09, 2024 08:26
[2024-12-09 09:00] VITALS: BP 130/52; PULSE 63; RESP 18; TEMP 98.3; O2SAT 95
[2024-12-09] MEDS: FOLIC ACID 1 MG TAB PO SCH (09:09)
[2024-12-09] MEDS: CYANOCOBALAMIN 500 MCG TAB PO SCH (09:09)
[2024-12-09 17:00] VITALS: BP 138/60; PULSE 75; RESP 18; TEMP 98.1; O2SAT 96
[2024-12-09 20:00] VITALS: O2SAT 98
[2024-12-09 21:00] VITALS: BP 113/63; PULSE 97; RESP 17; TEMP 97.8; O2SAT 97
[2024-12-10] VITALS (7 sets, daily range): BP systolic 130–151; BP diastolic 63–90; PULSE 62–69; RESP 16–18; TEMP 97.6–98.3; O2SAT 96–100
[2024-12-10] MEDS: diphenhdrAMINE HCL 50 MG/1 ML VL IV PRN (04:50)
--- NOTE | 2024-12-10 09:19 | DVHPN2 ---
Reviewed: Care Plan, H&P, Labs, Medications, Previous Orders, Radiology Changes from previous H/P or p: No Changes Genitourinary: Hematuria Musculoskeletal: other (Bilateral flank pain) Objective Vitals Vital Signs Date Time Temp Pulse Resp B/P (MAP) Pulse Ox O2 Delivery O2 Flow Rate FiO2 12/10/24 08:56 97.9 68 18 143/72 (95) 98 97.9 12/09/24 20:00 Room Air* 0 21 Intake/Output Intake and Output 12/10/24 07:00 Intake Total 2025 ml Balance 2025 ml Intake Oral 1175 ml IV Total 850 ml # Voids 9 # Bowel Movements 2 Medications Current Medications Medications Dose Ordered Sig/Adis Route Start Time Stop Time Status Last Admin Dose Admin Ceftriaxone Sodium 50 ml @ 100 mls/hr DAILY@09 IV 12/07/24 13:00 12/09/24 09:04 100 MLS/HR Ondansetron HCl 4 mg Q4HP PRN IV 12/07/24 13:00 Acetaminophen 650 mg Q6HP PRN PO 12/07/24 13:00 Morphine Sulfate 2 mg Q4HPRN PRN IV 12/07/24 13:00 UNV Diagnostic Test (Pha) 1 strip ACHS 12/07/24 17:00 12/10/24 06:17 1 STRIP Insulin Human Regular ACHS SC 12/07/24 17:00 12/10/24 06:17 3 UNITS Dextrose 50 ml UD PRN IV 12/07/24 13:00 Finasteride 2.5 mg DAILY PO 12/08/24 10:00 12/09/24 09:07 2.5 MG Metoprolol Succinate 50 mg DAILY PO 12/08/24 10:00 12/09/24 09:06 50 MG Patient Own Medication 1 tab DAILY PO 12/08/24 10:00 UNV Patient Own Medication 1 tab HS PO 12/07/24 22:00 UNV Patient Own Medication 1 tab DAILY PO 12/08/24 10:00 UNV Patient Own Medication 1 tab DAILY PO 12/08/24 10:00 UNV Sodium Chloride 1,000 ml @ 75 mls/hr [id number] IV 12/07/24 14:30 12/09/24 19:50 75 MLS/HR Amlodipine Besylate 2.5 mg DAILY PO 12/08/24 10:00 12/09/24 09:08 2.5 MG Atorvastatin Calcium 40 mg HS PO 12/07/24 22:00 12/09/24 22:04 40 MG Cholecalciferol 2,000 unit DAILY PO 12/08/24 10:00 12/09/24 09:09 2,000 UNIT Losartan Potassium 100 mg DAILY PO 12/08/24 10:00 12/09/24 09:07 100 MG Acetaminophen/ Hydrocodone Bitart 1 tab Q6HP PO 12/08/24 17:00 12/10/24 06:17 1 TAB Cyanocobalamin 500 mcg DAILY PO 12/09/24 10:00 12/09/24 09:09 500 MCG Folic Acid 1 mg DAILY PO 12/09/24 10:00 12/09/24 09:09 1 MG Diphenhydramine HCl 25 mg Q4HP PRN IV 12/10/24 04:00 12/10/24 04:50 25 MG Laboratory Results Laboratory Tests 12/08/24 05:15 Urinalysis Test 12/07/24 19:00 Urine Color Light-yellow (Yellow) Urine Clarity Clear (Clear) Urine pH 5.0 (5.0-9.0) Urine Specific [place] 1.018 (1.001-1.035) Urine Protein Trace (Negative) H Urine Ketones Negative (Negative) Urine Blood 2+ /uL (Negative) H Urine Nitrite Negative (Negative) Urine Bilirubin Negative (Negative) Urine Urobilinogen Normal mg/dL (Negative) Urine Leukocyte Esterase 2+ /uL (Negative) Urine RBC 38 /hpf (0 - 4) Urine Microscopic WBC 32 /HPF (0-5) H Urine Squamous Epithelial Cells Few /hpf (<5) Urine Bacteria None seen /hpf (None Seen) Urine Hyaline Casts Few /lpf (0 - 2) Urine Glucose 4+ mg/dL (Normal) H Microbiology Microbiology Date/Time Source Procedure Growth Status 12/07/24 19:00 Voided Urine Urine Culture - Final Complete 12/07/24 14:35 Blood Blood Culture - Preliminary NO GROWTH AFTER 48 HOURS OF INCUBATION. Resulted Labs and/or images reviewed: Labs reviewed by me, Image(s) reviewed by me Assessment/Plan Assessment/Plan Intractable bilateral flank pain : Pain meds Acute urinary tract infection: Blood cultures negative, urine cultures mixed, continue Rocephin MORRIS likely due to obstruction Bilateral renal calculi, including staghorn calculi in the right kidney. 2 mm calculus in the left posterior bladder, in close proximity to the left ureterovesical junction, consult for urology Dr. Sanket alston, pain medications, IV fluids Hepatomegaly and hepatic steatosis. Small hiatal hernia Nephrolithiasis Hypertension Diabetes Hypercholesterolemia History of 8-9 lithotripsies Plan discussed with: Patient Date of Service: Dec 10, 2024 Billing Provider: JAIDA ROSALES MD Common Visit Codes: [id number] INP/OBS CARE(HIGH) JAIDA ROSALES MD Dec 10, 2024 09:19
--- NOTE | 2024-12-10 15:34 | DVHINCON2 ---
Date of service: Dec 10, 2024 Referring Physician Lila Reason for Consultation stones History of Present Illness several day hx bilateral flank pain; 20 years hx multiple stones ,multiple eswls per Dr Russell in [place] Past Medical History reviewed Past Surgical History reviewed Family History: Colon cancer G8 MOTHER Diabetes mellitus G8 MOTHER G8 BROTHER Allergies: Coded Allergies: Sulfa Antibiotics (Verified Allergy, Mild, 10/09/13) Home Meds Active Scripts Metronidazole (Flagyl) 500 Mg Tab, 1 TAB PO TID for 5 Days, #15 TAB Prov:STARR WILLAMS [employer] 06/10/24 Ciprofloxacin Hcl (Cipro) 500 Mg Tab, 1 TAB PO BID, #14 TAB Prov:JAIDA ROSALES MD 10/02/23 Prednisone (Prednisone) 10 Mg Tab, 10 MG PO BID for 5 Days, #10 MG 0 Refills Prov:MAISHA KING 09/21/21 Reported Medications Loperamide HCl (Loperamide Hydrochloride) 2 Mg Cap, CAP PO 10/01/23 Cetirizine HCl (Cetirizine Hydrochloride) 10 Mg Tab, 1 TAB PO DAILY 10/01/23 Sitagliptin Phosphate (Januvia) 100 Mg Tab, 1 TAB PO DAILY 10/01/23 Ketoconazole (Ketoconazole) 2 % Sha, TOP 10/01/23 Methylprednisolone (Methylprednisolone) 4 Mg Tab, 1 TAB PO DAILY 10/01/23 Metoprolol Succinate (Metoprolol Succinate Er) 50 Mg Tab, 1 TAB PO DAILY 10/01/23 Amlodipine Besylate (Amlodipine Besylate) 2.5 Mg Tab, 1 TAB PO DAILY, #30 TAB 5 Refills 10/01/23 Glipizide (Glipizide) 10 Mg Tab, 1 TAB PO BID, #60 TAB 5 Refills 10/01/23 Biotin (Vitamin H) (BIOTIN) Unknown Strength Tab, PO DAILY 08/22/20 Cholecalciferol (VITAMIN D3) 2,000 Unit Tab, 1 TAB PO DAILY 08/22/20 Atorvastatin Calcium (ATORVASTATIN CALCIUM) 40 Mg Tab, 1 TAB PO HS 08/22/20 Finasteride (Finasteride) 5 Mg Tab, 0.5 TAB PO DAILY for ALOPECIA FOR ALOPECIA 08/22/20 Losartan Potassium (Losartan Potassium) 100 Mg Tab, 1 TAB PO DAILY 08/22/20 Metformin Hydrochloride (Metformin Hcl) 1,000 Mg Tab, 1000 MG PO BID PER PT, PT TAKES 1000 MG PO AT BREAKFAST, 1000 MG PO AT LUNCH, & 500 MG PO AT DINNER 10/10/13 Current Medications Current Medications Medications (Trade) Dose Ordered Sig/Adis Route PRN Reason Start Time Stop Time Status Last Admin Diphenhydramine HCl (Benadryl Injection) 25 mg Q4HP PRN IV FOR ITCHING 12/10/24 04:00 12/10/24 04:50 Review of Systems reviewed Vital Signs Vital Signs Date Time Temp Pulse Resp B/P (MAP) Pulse Ox O2 Delivery O2 Flow Rate FiO2 12/10/24 12:52 97.6 66 18 130/70 (90) 99 97.6 12/09/24 20:00 Room Air* 0 21 Labs/Diagnostic Data Labs Test 12/10/24 13:16 12/08/24 05:15 12/07/24 19:00 12/07/24 13:52 Range/Units POC Glucose 237 H 70-106 mg/dl White Blood Count 10.5 4.4-10.8 10^3/uL Red Blood Count 4.17 4.0-5.20 10^6/uL Hemoglobin 11.9 L 12.2-16.2 g/dL Hematocrit 35.3 #L 36.0-46.0 % Mean Corpuscular Volume 84.5 80.0-100.0 fL Mean Corpuscular Hemoglobin 28.6 28.0-32.0 pg Mean Corpuscular Hemoglobin Concent 33.9 32.0-36.0 g/dL Red Cell Distribution Width 14.7 H 11.8-14.3 % Platelet Count 286 140-450 10^3/uL Mean Platelet Volume 7.9 6.9-10.8 fL Neutrophils (%) (Auto) 68.3 37.0-80.0 % Lymphocytes (%) (Auto) 20.7 10.0-50.0 % Monocytes (%) (Auto) 9.9 0.0-12.0 % Eosinophils (%) (Auto) 0.8 0.0-7.0 % Basophils (%) (Auto) 0.3 0.0-2.0 % Neutrophils # (Auto) 7.2 1.6-8.6 10 ^3/uL Lymphocytes # (Auto) 2.2 0.4-5.4 10 ^3/uL Monocytes # (Auto) 1.0 0-1.3 10 ^3/uL Eosinophils # (Auto) 0.1 0-0.8 10 ^3/uL Basophils # (Auto) 0 0-0.2 10 ^3/uL Nucleated Red Blood Cells 0.0 % Sodium Level 138 136-145 mmol/L Potassium Level 4.5 3.5-5.1 mmol/L Chloride Level 106 98-107 mmol/L Carbon Dioxide Level 21 20-31 mmol/L Anion Gap 11 5-15 Blood Urea Nitrogen 16 9-23 mg/dL Creatinine 0.86 0.550-1.02 mg/dL Glomerular Filtration Rate Calc 71 >90 mL/min BUN/Creatinine Ratio 18.6 10.0-20.0 Serum Glucose 164 H 74-106 mg/dL Calcium Level 9.5 8.7-10.4 mg/dL Total Bilirubin 0.7 0.2-1.0 mg/dL Aspartate Amino Transferase (AST) 11 L 13-40 U/L Alanine Aminotransferase (ALT) 11 7-40 U/L Alkaline Phosphatase 72 46-116 U/L Total Protein 7.0 5.7-8.2 g/dL Albumin 4.0 3.2-4.8 g/dL Urine Color Light-yellow Yellow Urine Clarity Clear Clear Urine pH 5.0 5.0-9.0 Urine Specific [place] 1.018 1.001-1.035 Urine Protein Trace H Negative Urine Ketones Negative Negative Urine Blood 2+ H Negative /uL Urine Nitrite Negative Negative Urine Bilirubin Negative Negative Urine Urobilinogen Normal Negative mg/dL Urine Leukocyte Esterase 2+ Negative /uL Urine RBC 38 0 - 4 /hpf Urine Microscopic WBC 32 H 0-5 /HPF Urine Squamous Epithelial Cells Few <5 /hpf Urine Bacteria None seen None Seen /hpf Urine Hyaline Casts Few 0 - 2 /lpf Urine Glucose 4+ H Normal mg/dL Urine Opiates Screen Pos NEGATIVE Urine Fentanyl Screen Neg NEGATIVE Urine Barbiturates Screen Neg NEGATIVE Urine Phencyclidine Screen Neg NEGATIVE Urine Amphetamines Screen Neg NEGATIVE Urine Benzodiazepines Screen Neg NEGATIVE Urine Cocaine Screen Neg NEGATIVE Urine Cannabinoids Screen Neg NEGATIVE Lactic Acid Level 1.5 0.4-2.0 mmol/L Test 12/07/24 09:25 Range/Units Hemoglobin A1c 7.5 H <5.7 % A1C Microbiology Date/Time Source Procedure Growth Status 12/07/24 19:00 Voided Urine Urine Culture - Final Complete 12/07/24 14:35 Blood Blood Culture - Preliminary NO GROWTH AFTER 72 HOURS OF INCUBATION. Resulted Assessment multiple stones large in right kidney ,one small nonobstructing stone left kidney Plan/Recommendation KUB, defer treatment to Urological instutute for future care Plan discussed with: Patient CAITLYN YOST MD Dec 10, 2024 15:34
--- NOTE | 2024-12-10 20:14 | DVH ---
Exam: XY KUB ABDOMEN SINGLE VIEW Indication: stones both kidneys Comparison: CT abdomen/pelvis 12/07/2024. Technique: 1 radiographic views of the abdomen. Findings: Multiple calcifications redemonstrated at the positioning of the right collecting system. Nonobstructive bowel gas pattern. The lower chest is unremarkable. No acute osseous finding. Impression: 1. No appreciable change in burden of right collecting system calcifications from 3 days prior.
[2024-12-11] VITALS (8 sets, daily range): BP systolic 127–152; BP diastolic 54–82; PULSE 61–84; RESP 16–17; TEMP 97–98.6; O2SAT 95–100
--- NOTE | 2024-12-11 08:31 | DVHPN2 ---
Reviewed: Care Plan, H&P, Labs, Medications, Previous Orders, Radiology Changes from previous H/P or p: No Changes Genitourinary: Hematuria Musculoskeletal: other (Bilateral flank pain) Objective Vitals Vital Signs Date Time Temp Pulse Resp B/P (MAP) Pulse Ox O2 Delivery O2 Flow Rate FiO2 12/11/24 05:00 98.2 68 17 144/68 (93) 97 98.2 12/10/24 20:00 Room Air* 0 21 Intake/Output Intake and Output 12/11/24 07:00 Intake Total 2105 ml Balance 2105 ml Intake Oral 1155 ml IV Total 950 ml # Voids 6 # Bowel Movements 3 Medications Current Medications Medications Dose Ordered Sig/Adis Route Start Time Stop Time Status Last Admin Dose Admin Ceftriaxone Sodium 50 ml @ 100 mls/hr DAILY@09 IV 12/07/24 13:00 12/10/24 10:05 100 MLS/HR Ondansetron HCl 4 mg Q4HP PRN IV 12/07/24 13:00 Acetaminophen 650 mg Q6HP PRN PO 12/07/24 13:00 Morphine Sulfate 2 mg Q4HPRN PRN IV 12/07/24 13:00 UNV Diagnostic Test (Pha) 1 strip ACHS 12/07/24 17:00 12/11/24 06:16 1 STRIP Insulin Human Regular ACHS SC 12/07/24 17:00 12/11/24 06:17 4 UNITS Dextrose 50 ml UD PRN IV 12/07/24 13:00 Finasteride 2.5 mg DAILY PO 12/08/24 10:00 12/10/24 10:06 2.5 MG Metoprolol Succinate 50 mg DAILY PO 12/08/24 10:00 12/10/24 10:06 50 MG Patient Own Medication 1 tab DAILY PO 12/08/24 10:00 UNV Patient Own Medication 1 tab HS PO 12/07/24 22:00 UNV Patient Own Medication 1 tab DAILY PO 12/08/24 10:00 UNV Patient Own Medication 1 tab DAILY PO 12/08/24 10:00 UNV Sodium Chloride 1,000 ml @ 75 mls/hr [id number] IV 12/07/24 14:30 12/11/24 06:30 75 MLS/HR Amlodipine Besylate 2.5 mg DAILY PO 12/08/24 10:00 12/10/24 10:06 2.5 MG Atorvastatin Calcium 40 mg HS PO 12/07/24 22:00 12/10/24 21:25 40 MG Cholecalciferol 2,000 unit DAILY PO 12/08/24 10:00 12/10/24 10:05 2,000 UNIT Losartan Potassium 100 mg DAILY PO 12/08/24 10:00 12/09/24 09:07 100 MG Acetaminophen/ Hydrocodone Bitart 1 tab Q6HP PO 12/08/24 17:00 12/11/24 06:16 1 TAB Cyanocobalamin 500 mcg DAILY PO 12/09/24 10:00 12/10/24 10:05 500 MCG Folic Acid 1 mg DAILY PO 12/09/24 10:00 12/10/24 10:05 1 MG Diphenhydramine HCl 25 mg Q4HP PRN IV 12/10/24 04:00 12/10/24 04:50 25 MG Laboratory Results Laboratory Tests 12/08/24 05:15 Urinalysis Test 12/07/24 19:00 Urine Color Light-yellow (Yellow) Urine Clarity Clear (Clear) Urine pH 5.0 (5.0-9.0) Urine Specific [place] 1.018 (1.001-1.035) Urine Protein Trace (Negative) H Urine Ketones Negative (Negative) Urine Blood 2+ /uL (Negative) H Urine Nitrite Negative (Negative) Urine Bilirubin Negative (Negative) Urine Urobilinogen Normal mg/dL (Negative) Urine Leukocyte Esterase 2+ /uL (Negative) Urine RBC 38 /hpf (0 - 4) Urine Microscopic WBC 32 /HPF (0-5) H Urine Squamous Epithelial Cells Few /hpf (<5) Urine Bacteria None seen /hpf (None Seen) Urine Hyaline Casts Few /lpf (0 - 2) Urine Glucose 4+ mg/dL (Normal) H Microbiology Microbiology Date/Time Source Procedure Growth Status 12/07/24 19:00 Voided Urine Urine Culture - Final Complete 12/07/24 14:35 Blood Blood Culture - Preliminary NO GROWTH AFTER 72 HOURS OF INCUBATION. Resulted Labs and/or images reviewed: Labs reviewed by me, Image(s) reviewed by me Assessment/Plan Assessment/Plan Intractable bilateral flank pain : Pain meds Acute urinary tract infection: Blood cultures negative, urine cultures mixed, continue Rocephin MORRIS likely due to obstruction Bilateral renal calculi, including staghorn calculi in the right kidney. 2 mm calculus in the left posterior bladder, in close proximity to the left ureterovesical junction, consult for urology Dr. Martin who advised Dr. Coles to follow up Hepatomegaly and hepatic steatosis. Small hiatal hernia Nephrolithiasis Hypertension Diabetes Hypercholesterolemia History of 8-9 lithotripsies Plan discussed with: Patient Date of Service: Dec 11, 2024 Billing Provider: JAIDA ROSALES MD Common Visit Codes: [id number] INP/OBS CARE(HIGH) JAIDA ROSALES MD Dec 11, 2024 08:31
--- NOTE | 2024-12-11 21:22 | DVHINCON2 ---
Date of service: Dec 11, 2024 Referring Physician Hospitalist Reason for Consultation Bilateral renal stones, including large 2 cm right renal stone History of Present Illness Patient was seen by Dr. Martin on 12/10/24 for bilateral renal stones and renal scarring. Outpatient Cystoscopy with right ureteral stent placement and right ESWL followed by left ESWL TBA. Past Medical History kidney stones Past Surgical History lithotripsy Family History: Colon cancer G8 MOTHER Diabetes mellitus G8 MOTHER G8 BROTHER Allergies: Coded Allergies: Sulfa Antibiotics (Verified Allergy, Mild, 10/09/13) Home Meds Active Scripts Metronidazole (Flagyl) 500 Mg Tab, 1 TAB PO TID for 5 Days, #15 TAB Prov:STARR WILLAMS NP 06/10/24 Ciprofloxacin Hcl (Cipro) 500 Mg Tab, 1 TAB PO BID, #14 TAB Prov:JAIDA ROSALES MD 10/02/23 Prednisone (Prednisone) 10 Mg Tab, 10 MG PO BID for 5 Days, #10 MG 0 Refills Prov:MAISHA KING 09/21/21 Reported Medications Loperamide HCl (Loperamide Hydrochloride) 2 Mg Cap, CAP PO 10/01/23 Cetirizine HCl (Cetirizine Hydrochloride) 10 Mg Tab, 1 TAB PO DAILY 10/01/23 Sitagliptin Phosphate (Januvia) 100 Mg Tab, 1 TAB PO DAILY 10/01/23 Ketoconazole (Ketoconazole) 2 % Sha, TOP 10/01/23 Methylprednisolone (Methylprednisolone) 4 Mg Tab, 1 TAB PO DAILY 10/01/23 Metoprolol Succinate (Metoprolol Succinate Er) 50 Mg Tab, 1 TAB PO DAILY 10/01/23 Amlodipine Besylate (Amlodipine Besylate) 2.5 Mg Tab, 1 TAB PO DAILY, #30 TAB 5 Refills 10/01/23 Glipizide (Glipizide) 10 Mg Tab, 1 TAB PO BID, #60 TAB 5 Refills 10/01/23 Biotin (Vitamin H) (BIOTIN) Unknown Strength Tab, PO DAILY 08/22/20 Cholecalciferol (VITAMIN D3) 2,000 Unit Tab, 1 TAB PO DAILY 08/22/20 Atorvastatin Calcium (ATORVASTATIN CALCIUM) 40 Mg Tab, 1 TAB PO HS 08/22/20 Finasteride (Finasteride) 5 Mg Tab, 0.5 TAB PO DAILY for ALOPECIA FOR ALOPECIA 08/22/20 Losartan Potassium (Losartan Potassium) 100 Mg Tab, 1 TAB PO DAILY 08/22/20 Metformin Hydrochloride (Metformin Hcl) 1,000 Mg Tab, 1000 MG PO BID PER PT, PT TAKES 1000 MG PO AT BREAKFAST, 1000 MG PO AT LUNCH, & 500 MG PO AT DINNER 10/10/13 Vital Signs Vital Signs Date Time Temp Pulse Resp B/P (MAP) Pulse Ox O2 Delivery O2 Flow Rate FiO2 12/11/24 17:00 98.1 63 16 152/62 (92) 97 98.1 12/11/24 08:00 Room Air* 0 21 Labs/Diagnostic Data Labs Test 12/11/24 18:12 12/08/24 05:15 12/07/24 19:00 12/07/24 13:52 Range/Units POC Glucose 149 H 70-106 mg/dl White Blood Count 10.5 4.4-10.8 10^3/uL Red Blood Count 4.17 4.0-5.20 10^6/uL Hemoglobin 11.9 L 12.2-16.2 g/dL Hematocrit 35.3 #L 36.0-46.0 % Mean Corpuscular Volume 84.5 80.0-100.0 fL Mean Corpuscular Hemoglobin 28.6 28.0-32.0 pg Mean Corpuscular Hemoglobin Concent 33.9 32.0-36.0 g/dL Red Cell Distribution Width 14.7 H 11.8-14.3 % Platelet Count 286 140-450 10^3/uL Mean Platelet Volume 7.9 6.9-10.8 fL Neutrophils (%) (Auto) 68.3 37.0-80.0 % Lymphocytes (%) (Auto) 20.7 10.0-50.0 % Monocytes (%) (Auto) 9.9 0.0-12.0 % Eosinophils (%) (Auto) 0.8 0.0-7.0 % Basophils (%) (Auto) 0.3 0.0-2.0 % Neutrophils # (Auto) 7.2 1.6-8.6 10 ^3/uL Lymphocytes # (Auto) 2.2 0.4-5.4 10 ^3/uL Monocytes # (Auto) 1.0 0-1.3 10 ^3/uL Eosinophils # (Auto) 0.1 0-0.8 10 ^3/uL Basophils # (Auto) 0 0-0.2 10 ^3/uL Nucleated Red Blood Cells 0.0 % Sodium Level 138 136-145 mmol/L Potassium Level 4.5 3.5-5.1 mmol/L Chloride Level 106 98-107 mmol/L Carbon Dioxide Level 21 20-31 mmol/L Anion Gap 11 5-15 Blood Urea Nitrogen 16 9-23 mg/dL Creatinine 0.86 0.550-1.02 mg/dL Glomerular Filtration Rate Calc 71 >90 mL/min BUN/Creatinine Ratio 18.6 10.0-20.0 Serum Glucose 164 H 74-106 mg/dL Calcium Level 9.5 8.7-10.4 mg/dL Total Bilirubin 0.7 0.2-1.0 mg/dL Aspartate Amino Transferase (AST) 11 L 13-40 U/L Alanine Aminotransferase (ALT) 11 7-40 U/L Alkaline Phosphatase 72 46-116 U/L Total Protein 7.0 5.7-8.2 g/dL Albumin 4.0 3.2-4.8 g/dL Urine Color Light-yellow Yellow Urine Clarity Clear Clear Urine pH 5.0 5.0-9.0 Urine Specific [place] 1.018 1.001-1.035 Urine Protein Trace H Negative Urine Ketones Negative Negative Urine Blood 2+ H Negative /uL Urine Nitrite Negative Negative Urine Bilirubin Negative Negative Urine Urobilinogen Normal Negative mg/dL Urine Leukocyte Esterase 2+ Negative /uL Urine RBC 38 0 - 4 /hpf Urine Microscopic WBC 32 H 0-5 /HPF Urine Squamous Epithelial Cells Few <5 /hpf Urine Bacteria None seen None Seen /hpf Urine Hyaline Casts Few 0 - 2 /lpf Urine Glucose 4+ H Normal mg/dL Urine Opiates Screen Pos NEGATIVE Urine Fentanyl Screen Neg NEGATIVE Urine Barbiturates Screen Neg NEGATIVE Urine Phencyclidine Screen Neg NEGATIVE Urine Amphetamines Screen Neg NEGATIVE Urine Benzodiazepines Screen Neg NEGATIVE Urine Cocaine Screen Neg NEGATIVE Urine Cannabinoids Screen Neg NEGATIVE Lactic Acid Level 1.5 0.4-2.0 mmol/L Test 12/07/24 09:25 Range/Units Hemoglobin A1c 7.5 H <5.7 % A1C Microbiology Date/Time Source Procedure Growth Status 12/07/24 19:00 Voided Urine Urine Culture - Final Complete 12/07/24 14:35 Blood Blood Culture - Preliminary NO GROWTH AFTER 72 HOURS OF INCUBATION. Resulted Assessment Bilateral renal stones Plan/Recommendation Pain control Outpatient Right ESWL with stent placement followed by left ESWL tBA Plan discussed with: Patient, Other MATTY SORTO MD Dec 11, 2024 21:22
[2024-12-12] VITALS (9 sets, daily range): BP systolic 135–159; BP diastolic 67–79; PULSE 59–76; RESP 14–18; TEMP 36.8; O2SAT 94–100
[2024-12-12] MEDS ORDERED: CIPR-173 PO (08:35)
[2024-12-12] MEDS ORDERED: TRAM-626 PO (08:35)
--- NOTE | 2024-12-12 08:41 | DVHPN2 ---
Reviewed: Care Plan, H&P, Labs, Medications, Previous Orders, Radiology Changes from previous H/P or p: No Changes Genitourinary: Hematuria Musculoskeletal: other (Bilateral flank pain) Objective Vitals Vital Signs Date Time Temp Pulse Resp B/P (MAP) Pulse Ox O2 Delivery O2 Flow Rate FiO2 12/12/24 05:30 135/76 12/12/24 05:30 61 12/12/24 05:00 97.0 14 96 97.0 12/11/24 20:00 Room Air* 0 21 Intake/Output Intake and Output 12/12/24 07:00 Intake Total 3100 ml Output Total 1601 ml Balance 1499 ml Intake Oral 3100 ml Output Urine Total 1601 ml # Bowel Movements 2 Medications Current Medications Medications Dose Ordered Sig/Adis Route Start Time Stop Time Status Last Admin Dose Admin Ceftriaxone Sodium 50 ml @ 100 mls/hr DAILY@09 IV 12/07/24 13:00 12/11/24 10:29 100 MLS/HR Ondansetron HCl 4 mg Q4HP PRN IV 12/07/24 13:00 Acetaminophen 650 mg Q6HP PRN PO 12/07/24 13:00 Morphine Sulfate 2 mg Q4HPRN PRN IV 12/07/24 13:00 UNV Diagnostic Test (Pha) 1 strip ACHS 12/07/24 17:00 12/12/24 06:34 1 STRIP Insulin Human Regular ACHS SC 12/07/24 17:00 12/12/24 06:34 4 UNITS Dextrose 50 ml UD PRN IV 12/07/24 13:00 Finasteride 2.5 mg DAILY PO 12/08/24 10:00 12/11/24 10:30 2.5 MG Metoprolol Succinate 50 mg DAILY PO 12/08/24 10:00 12/11/24 10:31 50 MG Patient Own Medication 1 tab DAILY PO 12/08/24 10:00 UNV Patient Own Medication 1 tab HS PO 12/07/24 22:00 UNV Patient Own Medication 1 tab DAILY PO 12/08/24 10:00 UNV Patient Own Medication 1 tab DAILY PO 12/08/24 10:00 UNV Sodium Chloride 1,000 ml @ 75 mls/hr [id number] IV 12/07/24 14:30 12/11/24 06:30 75 MLS/HR Amlodipine Besylate 2.5 mg DAILY PO 12/08/24 10:00 12/11/24 10:31 2.5 MG Atorvastatin Calcium 40 mg HS PO 12/07/24 22:00 12/11/24 21:44 40 MG Cholecalciferol 2,000 unit DAILY PO 12/08/24 10:00 12/11/24 10:30 2,000 UNIT Losartan Potassium 100 mg DAILY PO 12/08/24 10:00 12/11/24 10:34 100 MG Acetaminophen/ Hydrocodone Bitart 1 tab Q6HP PO 12/08/24 17:00 12/12/24 06:01 1 TAB Cyanocobalamin 500 mcg DAILY PO 12/09/24 10:00 12/11/24 10:30 500 MCG Folic Acid 1 mg DAILY PO 12/09/24 10:00 12/11/24 10:30 1 MG Diphenhydramine HCl 25 mg Q4HP PRN IV 12/10/24 04:00 12/10/24 04:50 25 MG Laboratory Results Laboratory Tests 12/08/24 05:15 Urinalysis Test 12/07/24 19:00 Urine Color Light-yellow (Yellow) Urine Clarity Clear (Clear) Urine pH 5.0 (5.0-9.0) Urine Specific [place] 1.018 (1.001-1.035) Urine Protein Trace (Negative) H Urine Ketones Negative (Negative) Urine Blood 2+ /uL (Negative) H Urine Nitrite Negative (Negative) Urine Bilirubin Negative (Negative) Urine Urobilinogen Normal mg/dL (Negative) Urine Leukocyte Esterase 2+ /uL (Negative) Urine RBC 38 /hpf (0 - 4) Urine Microscopic WBC 32 /HPF (0-5) H Urine Squamous Epithelial Cells Few /hpf (<5) Urine Bacteria None seen /hpf (None Seen) Urine Hyaline Casts Few /lpf (0 - 2) Urine Glucose 4+ mg/dL (Normal) H Microbiology Microbiology Date/Time Source Procedure Growth Status 12/07/24 19:00 Voided Urine Urine Culture - Final Complete 12/07/24 14:35 Blood Blood Culture - Preliminary NO GROWTH AFTER 72 HOURS OF INCUBATION. Resulted Labs and/or images reviewed: Labs reviewed by me, Image(s) reviewed by me Assessment/Plan Assessment/Plan Intractable bilateral flank pain : Pain meds Acute urinary tract infection: Blood cultures negative, urine cultures mixed, continue Rocephin MORRIS likely due to obstruction Bilateral renal calculi, including staghorn calculi in the right kidney. 2 mm calculus in the left posterior bladder, in close proximity to the left ureterovesical junction, urology Dr. Coles evaluated the patient and advised outpatient ESWL on the right side with stent placement followed by ESWL in the left side patient was advised accordingly Hepatomegaly and hepatic steatosis. Small hiatal hernia Nephrolithiasis Hypertension Diabetes Hypercholesterolemia History of 8-9 lithotripsies Plan discussed with: Patient Date of Service: Dec 12, 2024 Billing Provider: JAIDA ROSALES MD Common Visit Codes: [id number] INP/OBS CARE(HIGH) JAIDA ROSALES MD Dec 12, 2024 08:41
--- NOTE | 2024-12-12 08:45 | DVHDS2 ---
Discharge Summary Date of Admission Dec 07, 2024 at 12:59 Date of Discharge: Dec 12, 2024 Admitting Diagnosis Right flank pain Wounds: None Labs/Diagnostic Data: Laboratory Results Test 12/12/24 06:03 12/08/24 05:15 12/07/24 19:00 12/07/24 13:52 POC Glucose 233 mg/dl (70-106) White Blood Count 10.5 10^3/uL (4.4-10.8) Red Blood Count 4.17 10^6/uL (4.0-5.20) Hemoglobin 11.9 g/dL (12.2-16.2) Hematocrit 35.3 % (36.0-46.0) Mean Corpuscular Volume 84.5 fL (80.0-100.0) Mean Corpuscular Hemoglobin 28.6 pg (28.0-32.0) Mean Corpuscular Hemoglobin Concent 33.9 g/dL (32.0-36.0) Red Cell Distribution Width 14.7 % (11.8-14.3) Platelet Count 286 10^3/uL (140-450) Mean Platelet Volume 7.9 fL (6.9-10.8) Neutrophils (%) (Auto) 68.3 % (37.0-80.0) Lymphocytes (%) (Auto) 20.7 % (10.0-50.0) Monocytes (%) (Auto) 9.9 % (0.0-12.0) Eosinophils (%) (Auto) 0.8 % (0.0-7.0) Basophils (%) (Auto) 0.3 % (0.0-2.0) Neutrophils # (Auto) 7.2 10 ^3/uL (1.6-8.6) Lymphocytes # (Auto) 2.2 10 ^3/uL (0.4-5.4) Monocytes # (Auto) 1.0 10 ^3/uL (0-1.3) Eosinophils # (Auto) 0.1 10 ^3/uL (0-0.8) Basophils # (Auto) 0 10 ^3/uL (0-0.2) Nucleated Red Blood Cells 0.0 % Sodium Level 138 mmol/L (136-145) Potassium Level 4.5 mmol/L (3.5-5.1) Chloride Level 106 mmol/L (98-107) Carbon Dioxide Level 21 mmol/L (20-31) Anion Gap 11 (5-15) Blood Urea Nitrogen 16 mg/dL (9-23) Creatinine 0.86 mg/dL (0.550-1.02) Glomerular Filtration Rate Calc 71 mL/min (>90) BUN/Creatinine Ratio 18.6 (10.0-20.0) Serum Glucose 164 mg/dL (74-106) Calcium Level 9.5 mg/dL (8.7-10.4) Total Bilirubin 0.7 mg/dL (0.2-1.0) Aspartate Amino Transferase (AST) 11 U/L (13-40) Alanine Aminotransferase (ALT) 11 U/L (7-40) Alkaline Phosphatase 72 U/L (46-116) Total Protein 7.0 g/dL (5.7-8.2) Albumin 4.0 g/dL (3.2-4.8) Urine Color Light-yellow (Yellow) Urine Clarity Clear (Clear) Urine pH 5.0 (5.0-9.0) Urine Specific [place] 1.018 (1.001-1.035) Urine Protein Trace (Negative) Urine Ketones Negative (Negative) Urine Blood 2+ /uL (Negative) Urine Nitrite Negative (Negative) Urine Bilirubin Negative (Negative) Urine Urobilinogen Normal mg/dL (Negative) Urine Leukocyte Esterase 2+ /uL (Negative) Urine RBC 38 /hpf (0 - 4) Urine Microscopic WBC 32 /HPF (0-5) Urine Squamous Epithelial Cells Few /hpf (<5) Urine Bacteria None seen /hpf (None Seen) Urine Hyaline Casts Few /lpf (0 - 2) Urine Glucose 4+ mg/dL (Normal) Urine Opiates Screen Pos (NEGATIVE) Urine Fentanyl Screen Neg (NEGATIVE) Urine Barbiturates Screen Neg (NEGATIVE) Urine Phencyclidine Screen Neg (NEGATIVE) Urine Amphetamines Screen Neg (NEGATIVE) Urine Benzodiazepines Screen Neg (NEGATIVE) Urine Cocaine Screen Neg (NEGATIVE) Urine Cannabinoids Screen Neg (NEGATIVE) Lactic Acid Level 1.5 mmol/L (0.4-2.0) Test 12/07/24 09:25 Hemoglobin A1c 7.5 % A1C (<5.7) Other Laboratory Tests 12/08/24 05:15 Brief Hx & Hospital Course: 74-year-old female with a history of kidney stones previous 8-9 lithotripsies diabetes hypertension hypercholesterolemia came in complaining of right flank pain treated with the pain medications mild urinary tract infection blood cultures negative urine cultures mixed treated with Rocephin CT abdomen pelvis without contrast showed staghorn calculus in the right kidney and 2 mm calculus in the left posterior bladder in close proximity to the left ureterovesical junction urology consult by Dr. Coles who advised outpatient follow up for ESWL patient was advised accordingly and discharged home on Cipro and tramadol. She will follow up with the . At the time of discharge patient is afebrile stable vital signs minimal pain RN carolin at bedside Consults/Reason for consult Urology Dr. Coles Operations or Procedures CT abdomen pelvis without contrast Condition at Discharge: Fair Final Diagnosis/Problems List Intractable bilateral flank pain : Pain meds Acute urinary tract infection: Blood cultures negative, urine cultures mixed, continue Rocephin MORRIS likely due to obstruction Bilateral renal calculi, including staghorn calculi in the right kidney. 2 mm calculus in the left posterior bladder, in close proximity to the left ureterovesical junction, urology Dr. Coles evaluated the patient and advised outpatient ESWL on the right side with stent placement followed by ESWL in the left side patient was advised accordingly Hepatomegaly and hepatic steatosis. Small hiatal hernia Nephrolithiasis Hypertension Diabetes Hypercholesterolemia History of 8-9 lithotripsies Discharge Disposition: Home Discharge Instruct/Medications Diet: Regular Activity: No Restrictions, As Tolerated Follow Up/Referral: Follow up with the Urology Dr. Coles for outpatient ESWL Medications: Cipro Tramadol [facility] Amlodipine Besylate (Amlodipine Besylate), 1 TAB PO DAILY, (Reported) Atorvastatin Calcium (Atorvastatin Calcium), 1 TAB PO HS, (Reported) Biotin (Vitamin H) (Biotin), Unknown Dose PO DAILY, (Reported) Cetirizine HCl (Cetirizine Hydrochloride), 1 TAB PO DAILY, (Reported) Cholecalciferol (Vitamin D3), 1 TAB PO DAILY, (Reported) Ciprofloxacin Hcl (Cipro), 1 TAB PO BID Ciprofloxacin Hcl (Cipro), 1 TAB PO BID Finasteride (Finasteride), 0.5 TAB PO DAILY, (Reported) Glipizide (Glipizide), 1 TAB PO BID, (Reported) Losartan Potassium (Losartan Potassium), 1 TAB PO DAILY, (Reported) Metformin Hydrochloride (Metformin Hcl), 1,000 MG PO BID, (Reported) Methylprednisolone (Methylprednisolone), 1 TAB PO DAILY, (Reported) Metoprolol Succinate (Metoprolol Succinate Er), 1 TAB PO DAILY, (Reported) Metronidazole (Flagyl), 1 TAB PO TID Prednisone (Prednisone), 10 MG PO BID Sitagliptin Phosphate (Januvia), 1 TAB PO DAILY, (Reported) Tramadol HCl (Tramadol HCl), 50 MG PO QID Miscellaneous Medications Ketoconazole (Ketoconazole), TOP, (Reported) Loperamide HCl (Loperamide Hydrochloride), CAP PO, (Reported) 39 (Time taken for discharge summary 39 minutes) Discharge Statement: "Patient was advised to return to the ER or call 911 if any headaches, dizziness, shortness of breath, chest pain, abdominal pain, bleeding, fevers, or worsening of medical condition. Patient was counseled about treatment plan, medications, possible side effects, patientverbalized understanding. All questions were answered to the best of my ability. This discharge took greater then 30 minutes in planning, reviewing documentation, counseling the patient, and discussing with other team members." ASSESSMENT ASSESSMENT Hospital Course Improved Assessment Intractable bilateral flank pain : Pain meds Acute urinary tract infection: Blood cultures negative, urine cultures mixed, continue Rocephin MORRIS likely due to obstruction Bilateral renal calculi, including staghorn calculi in the right kidney. 2 mm calculus in the left posterior bladder, in close proximity to the left ureterovesical junction, urology Dr. Coles evaluated the patient and advised outpatient ESWL on the right side with stent placement followed by ESWL in the left side patient was advised accordingly Hepatomegaly and hepatic steatosis. Small hiatal hernia Nephrolithiasis Hypertension Diabetes Hypercholesterolemia History of 8-9 lithotripsies Date of Service: Dec 12, 2024 Billing Provider: JAIDA ROSALES MD Common Visit Codes: 36131-KMK/OBS DISCH DAY >30min JAIDA ROSALES MD Dec 12, 2024 08:45
== END 2024-12-12 15:20 | disposition home or self-care (01) | DRG 693 ==
LOC: ER 09:02 → OVERFLOW 12:59 → CENTRAL 15:18
PROVIDERS: ADMIT Family Medicine; ATTEND Family Medicine
DX: N20.0 Calculus of kidney (principal); N17.0 Acute kidney failure with tubular necrosis; N30.01 Acute cystitis with hematuria; E27.8 Other specified disorders of adrenal gland; E11.9 Type 2 diabetes mellitus without complications; D72.829 Elevated white blood cell count, unspecified; K44.9 Diaphragmatic hernia without obstruction or gangrene; K76.0 Fatty (change of) liver, not elsewhere classified; I10 Essential (primary) hypertension; R16.0 Hepatomegaly, not elsewhere classified; E78.00 Pure hypercholesterolemia, unspecified; Z87.442 Personal history of urinary calculi; Z88.2 Allergy status to sulfonamides; Z90.710 Acquired absence of both cervix and uterus; Z83.3 Family history of diabetes mellitus; Z80.0 Family history of malignant neoplasm of digestive organs
CPT/HCPCS: 36415; 74018; 74176; 80053; 80307; 81001; 82962; 83036; 83605; 85025; 87040; 87086; 96374; 96375; G0378; J1815; J2405